=== PATIENT | female | born 1930 | race Caucasian/White ===

== ENCOUNTER 2018-05-12 18:35 | Inpatient (IN) | payer MEDICARE ==
[~2018-05-12 18:35] MED LIST: ISOVUE-370 76%-LOCM 1 ML ONE
[2018-05-12 19:32] LABS: #Lymphocytes 0.6 thou/uL (1.20-3.40); #Monocytes 0.6 thou/uL (0.11-0.59); #Neutrophils 13.3 thou/uL (1.40-6.50); %Eosinophils 0.1 % (0.0-10.0); %Lymphocytes 4.2 % (21.0-51.0); %Monocytes 4.3 % (0.0-10.0); %Neutrophils 91.4 % (42.0-75.0); Hemoglobin 14.3 g/dL (12.0-16.0); Mean Corpuscular HGB CONC 34.4 g/dL (32.0-36.0); Mean Corpuscular Hemoglobin 32.8 pg (27.0-31.0); Mean Corpuscular Volume 95.2 fL (78.0-98.0); Mean Platelet Volume 7.3 fL (7.4-10.4); Platelet Count 218 thou/uL (130-400); Red Blood Cell (RBC) Count 4.37 mill/uL (4.20-5.40); White Blood Cell (WBC) Count 14.5 thou/uL (4.8-10.8)
[2018-05-12 19:54] LABS: ALT (SGPT) 12 U/L (8-55); AST (SGOT) 23 U/L (5-34); Alkaline Phosphatase 80 U/L (40-150); Anion Gap 14 mmol/L (10-20); BUN (Urea Nitrogen) 24 mg/dL (9.8-20.1); Bilirubin, Total 0.6 mg/dL (0.2-1.2); Calc. Creatinine Clearance 0 mL/min (70-130); Calcium 9.4 mg/dL (7.8-10.44); Carbon Dioxide 22 mmol/L (23-31); Chloride 101 mmol/L (98-107); Estimated GFR-MDRD 51; Globulin 3.7 g/dL (2.4-3.5); Glucose 146 mg/dL (83-110); Potassium 3.7 mmol/L (3.5-5.1); Protein, Total 7.7 g/dL (6.0-8.3); Sodium 133 mmol/L (136-145)
[2018-05-12 20:15] LABS: INR-International Normal Ratio 1.6; PTT 26.4 SEC (22.9-36.1); Prothrombin Time 18.9 SEC (12.0-14.7)
[2018-05-12 20:22] LABS: Troponin I Less than 0.010 ng/mL (< 0.028)
--- NOTE | 2018-05-12 20:36 | CT ---
HEAD CT WITHOUT CONTRAST: 05/12/18 COMPARISON: 11/30/16 HISTORY: Fall. Possible CVA. FINDINGS: No parenchymal hemorrhage. No extra-axial hematoma. No midline shift. Basilar cisterns are patent. Ag e appropriate atrophy. There is stable malacic change involving the left frontal lobe. Remainder of t he cerebrum demonstrates preservation of the cortical choi-white matter differentiation. There are ch ronic small vessel ischemic change of the white matter. No evidence of hydrocephalus. Calvarium is in tact. Adequate aeration of the sinuses and mastoid air cells. Cavernous carotid atherosclerosis is no adriana. Calcification/mineralization of the basal ganglia is again noted. IMPRESSION: No acute intracranial process. No intracranial posttraumatic sequela. POS: PPP
--- NOTE | 2018-05-12 20:40 | CT ---
CT CERVICAL SPINE WITHOUT CONTRAST: 05/12/18 HISTORY: Fall. Posttraumatic pain. COMPARISON: None. FINDINGS: There is no craniocervical dissociation. Lateral masses of C1 and C2 articulate appropriately. Approp riate articulation of the facets. Intact odontoid process. Exaggeration of normal cervical lordosis may be due to patient position. There is no prevertebral sof t tissue swelling. Soft tissue neck structures are unremarkable. Carotid atherosclerosis is noted. There appears to be s carring in both lung apices. There are varying degrees of central canal stenosis and neural foraminal narrowing on the basis of degenerative change. Cervical spine vertebral body height is maintained. There is no fracture. IMPRESSION: 1. No fracture. 2. Probable bilateral apical pleural thickening/scarring. 3. Exaggeration of cervical lordosis which is presumed to be due to patient position. If there i s concern for ligamentous injury, consider MRI. POS: PPP
--- NOTE | 2018-05-12 20:51 | RAD ---
THREE VIEW RIGHT SHOULDER: 05/12/18 INDICATION: Fall with injury and pain. FINDINGS: There is a mildly displaced and slightly impacted right humeral neck fracture. Fracture is slightly c omminuted and there is slight displacement of greater tuberosity fracture fragment. Mild osteoarthrit is at the right AC joint is seen. IMPRESSION: Comminuted, mildly displaced and impacted proximal right humeral fracture situated about the right hu meral neck with mild displacement of greater tuberosity fracture fragment. Recommend orthopedic consu ltation. POS: SHERRY
--- NOTE | 2018-05-12 20:53 | RAD ---
TWO VIEW RIGHT ELBOW: 05/12/18 INDICATION: Fall with pain, injury. FINDINGS: The frontal view is rotated limiting visualization. There is no obvious fracture or joint capsular di stention identified. IMPRESSION: No acute fracture of the right elbow identified, within limitations. POS: BRITTANY
--- NOTE | 2018-05-12 20:55 | RAD ---
FRONTAL VIEW CHEST: 05/12/18 COMPARISON: 02/18/18. INDICATION: Fall with pain. FINDINGS: There is prominence of the cardiac silhouette. Right hemidiaphragm is elevated. Left sided cardiac pa cing device remains. There is interstitial prominence of each lung with vascular congestion and vascu lar calcification. Incidental note of a right proximal humeral fracture. There is prominent biapical pleural thickening/ irregularity. Vertebroplasty is seen at the lower thoracic spine. IMPRESSION: Findings consistent with CHF. Proximal right humeral fracture. POS: BRITTANY
[2018-05-12] MEDS ORDERED: Ondansetron HCl/PF 4 MG/2 ML Vial ONE (21:27)
[2018-05-12 21:36] LABS: Bilirubin Negative (Negative); Blood, Urine Small (Negative); Clarity CLOUDY (Clear); Glucose, Urine (Dipstick) Negative (Negative); Leukocyte Moderate (Negative); Nitrite Positive (Negative); Protein, Urine (Dipstick) 30 mg/dL (Neg-Trace); Specific Gravity, Urine 1.017 (1.002-1.036); Urobilinogen 0.2 mg/dL (0.2-1.0)
[2018-05-12 21:38] LABS: Bacteria/HPF 4+ HPF (None Seen); Hyaline Casts/LPF 0-3 HYALINE CAST LPF (0-3 Hyaline); Pathc Cast-AUWi Flag 0.14 (0-2.49); Squamous Epithelial 0-3 HPF (0-3)
--- NOTE | 2018-05-12 22:09 | CT ---
CTA NECK WITH CONTRAST WITH 3D VOLUME RENDERING CTA [place] WITH CONTRAST WITH 3D VOLUME RENDERING 05/12/18 INDICATION: New onset slurred speech. Altered mental status. FINDINGS: There is calcification at imaged aortic arch. The visualized bilateral subclavian arteries reveal no high grade stenosis or occlusion. Each vertebral artery arises from the respective subclavian artery with a dominant left vertebral artery. There is no high grade stenosis or occlusion of either vertebr al artery. There is mild calcification at the origin of the right vertebral artery. Bilateral common carotid artery reveal no significant stenosis or occlusion. There is mild calcification at each carot id bulb without high grade stenosis of either cervical ICA. Basilar artery is patent. Evaluation of t he anterior, middle and posterior cerebral arteries reveals appropriate patency bilaterally. Region o f anterior communicating artery is unremarkable. Very small caliber posterior communicating arteries are faintly visualized. Incidental note of linear parenchymal densities at the upper lung zones as well as bronchiectasis and areas of reticulonodular opacification. There is prominent debris filled, distended esophagus visual ized. Correlate clinically. IMPRESSION: 1. Scattered vascular disease although no high grade stenosis or occlusion of the major arterial system of head and neck. 2. Prominent volume of retained debris of the imaged esophagus. Correlate for dysmotility. 3. Bronchiectasis, presumed areas of scarring and tree-in-bud nodularity at the imaged upper reinaldo g zones. Correlate for evidence of an atypical infarction. POS: BRITTANY
[2018-05-12] MEDS ORDERED: Ondansetron HCl/PF 4 MG/2 ML Vial IVP PRN (23:03)
[2018-05-13] MEDS ORDERED: Morphine 4 MG/ML VIAL IV PRN (02:12)
[2018-05-13] MEDS: Sodium Chloride 0.9% 1,000 ML IV SCH ×2 (02:32→16:04)
[2018-05-13 05:52] LABS: #Lymphocytes 1.2 thou/uL (1.20-3.40); #Monocytes 1.2 thou/uL (0.11-0.59); #Neutrophils 8.7 thou/uL (1.40-6.50); %Basophils 0.4 % (0.0-1.0); %Eosinophils 0.1 % (0.0-10.0); %Lymphocytes 10.9 % (21.0-51.0); %Monocytes 10.4 % (0.0-10.0); %Neutrophils 78.2 % (42.0-75.0); Hemoglobin 12.9 g/dL (12.0-16.0); Mean Corpuscular HGB CONC 33.9 g/dL (32.0-36.0); Mean Corpuscular Hemoglobin 32.4 pg (27.0-31.0); Mean Corpuscular Volume 95.6 fL (78.0-98.0); Mean Platelet Volume 7.5 fL (7.4-10.4); Platelet Count 194 thou/uL (130-400); RBC Distribution Width 12.2 % (11.5-14.5); Red Blood Cell (RBC) Count 3.97 mill/uL (4.20-5.40); White Blood Cell (WBC) Count 11.2 thou/uL (4.8-10.8)
[2018-05-13 06:04] LABS: ALT (SGPT) 11 U/L (8-55); AST (SGOT) 22 U/L (5-34); Albumin 3.6 g/dL (3.4-4.8); Alkaline Phosphatase 67 U/L (40-150); Anion Gap 13 mmol/L (10-20); BUN (Urea Nitrogen) 24 mg/dL (9.8-20.1); Calc. Creatinine Clearance 43 mL/min (70-130); Calcium 9.1 mg/dL (7.8-10.44); Carbon Dioxide 22 mmol/L (23-31); Chloride 103 mmol/L (98-107); Estimated GFR-MDRD 65; Globulin 3.4 g/dL (2.4-3.5); Glucose 110 mg/dL (83-110); Potassium 4.1 mmol/L (3.5-5.1); Sodium 134 mmol/L (136-145)
[2018-05-13] MEDS ORDERED: Famotidine/PF 20 mg/2ml Vial SLOW IVP SCH (09:00)
[2018-05-13] MEDS ORDERED: Prevnar 13-Val Conj/PF 0.5 ML SYRINGE IM ONE (09:00)
[2018-05-13] MEDS: Famotidine/PF 20 mg/2ml Vial SLOW IVP SCH (09:54)
--- NOTE | 2018-05-13 12:45 | CON-2 ---
DATE OF CONSULTATION: 05/13/2018 REASON FOR CONSULTATION: We were asked by [facility], Dr. Chi to see the patient. HISTORY OF PRESENT ILLNESS: The patient fell, was found down by friends yesterday, unwitnessed fall. The patient does not remember falling, does not remember if she had loss of consciousness and she i s a little bit confused. She is answering some simple questions well, but she is being worked up for stroke protocol. She sustained a proximal humerus fracture, so her upper arm hurts on the right, bu t she has good sensations in the hand. She is able to move her elbow and digits on that side well. The patient is unable to give us much history. We will review history from recent notes if they are available. ALLERGIES: No known drug allergies. MEDICATIONS: Unknown. Family was getting the list. PAST MEDICAL HISTORY: Positive for cardiac issues, coronary artery disease, hypertension, breast CA. PAST SURGICAL HISTORY: Pacemaker, gastric bypass and mastectomy. PSYCHIATRIC HISTORY: Per family, she is fairly happy and has no mental issues. SOCIAL HISTORY: No alcohol or nicotine products. Resides at home with family. REVIEW OF SYSTEMS: The patient is confused, but is able to complain of right upper extremity pain. Denies any headache, shortness of breath, chest pain. No bowel or bladder issues, but again she is c onfused. PHYSICAL EXAMINATION: GENERAL: Very pleasant, well-nourished appearing female, resting in bed, in no acute distress. Spee ch clear. Affect pleasant. Answers simple questions appropriately. Is oriented to person. Family is at the bedside. HEENT: Normal exam. Face symmetric. Tongue midline. Smile symmetric. NECK: Supple. Trachea midline. RESPIRATORY: No distress. EXTREMITIES: Upper extremities, equal size, shape, symmetry, normal bulk and tone with the exception of the right deltoid region is a little bit swollen and is starting to have some early ecchymosis. She has good sensations to that right upper extremity as she does with left upper extremity and pulse s are equal. She is able to move elbows and digits on that right upper extremity well. Lower extrem ities, equal size, shape, symmetry, normal bulk and tone. DP and PT pulses symmetric. ASSESSMENT: 1. Multiple medical issues, being worked up for stroke versus transient ischemic attack. 2. Proximal humerus fracture, nonsurgical in nature. PLAN: I had a long talk with the family. Spoke about options. The patient's humerus fracture is th e least of the concerns for the patient currently. Once she is cleared medically, we will started wo rking on physical therapy and then get her up and move her. Her arm is already in a sling and with t he appropriate treatment. I have encouraged the patient to move her elbow and digits, so they will n ot get stiff and the family understands this also. From an ortho standpoint, she can eat, does not n eed to be kept n.p.o. for any orthopedic procedure. We will check her out through the weekend and christianne ke sure she is doing okay. She will need to see us in 4-6 weeks in our clinic for repeat x-rays and followup.
[2018-05-13] MEDS ORDERED: Aspirin 325 mg Enteric Coated Tablet PO SCH (13:00)
[2018-05-13 16:07] LABS: Hemoglobin 12.5 g/dL (12.0-16.0); Platelet Count 197 thou/uL (130-400)
[2018-05-13 16:13] LABS: INR-International Normal Ratio 1.5; Prothrombin Time 18.3 SEC (12.0-14.7)
[2018-05-13] MEDS: Warfarin Sodium 2.5 MG TAB PO SCH (16:22)
--- NOTE | 2018-05-13 17:03 | HP ---
DATE OF ADMISSION: 05/13/2018 PRIMARY CARE PROVIDER: Yadiel Borja M.D. in [place], [place]. CHIEF COMPLAINT: Unresponsiveness. HISTORY OF PRESENT ILLNESS: Ms. Nichols is a pleasant 88-year-old lady who was seen at [facility] on 05/13/2018. The patient herself is unable to provide any history because she does not remember what happened. Collateral history was obtained from review of medical records and discussion with the emergency room physician. Her caregiver left her house around 12:30 p.m. yesterday. Around 5:00 p.m., she was found on the ground, complaining of pain in her right shoulder. She also reportedly had slurred speech at that time. She did not have any headache or weakness. She was brought to the emergency room because of the episode of loss of consciousness. REVIEW OF SYSTEMS: All other systems reviewed and found to be negative. PAST MEDICAL HISTORY: Coronary artery disease, hypertension, probable atrial fibrillation and breast cancer. PAST SURGICAL HISTORY: Breast cancer surgery, pacemaker placement, gastric bypass. SOCIAL HISTORY: The patient denies tobacco use, alcohol use or recreational drug use. CODE STATUS: I discussed her code status. She is full code. ALLERGIES: No known drug allergies. CURRENT MEDICATIONS: Bimatoprost eyedrops, Combigan eyedrops, Coreg 6.25 mg 2 times a day, lisinopril 10 mg daily, mirtazapine 30 mg at bedtime, omeprazole 20 mg 2 times a day and warfarin 3 mg daily. FAMILY HISTORY: No family history of premature coronary artery disease. PHYSICAL EXAMINATION: GENERAL: Ms. Nichols is awake and alert, not in acute distress. VITAL SIGNS: Blood pressure is 159/78, pulse 66, respiratory rate 18 and oxygen saturation 92% on room air. She is afebrile. EYES: No scleral icterus. No conjunctival pallor. ENT: Dry mucosal membranes. No oropharyngeal erythema or exudates. NECK: Supple, nontender, normal range of movement. Trachea is midline. RESPIRATORY: Accessory muscles of breathing are not active. Chest wall movements are symmetric bilaterally. LUNGS: Clear to auscultation without wheeze, rhonchi or crepitations. CARDIOVASCULAR: S1 and S2 are heard, regular. Peripheral pulses palpable. No carotid bruit, no pericardial rub. ABDOMEN: Soft, nontender, bowel sounds are heard, no hepatomegaly, no splenomegaly. NEUROLOGIC: Cranial nerves II-XII intact. Deep tendon reflexes are 2+. No focal motor or sensory deficits. Power is 5/5 in left upper and both lower extremities, right upper extremity is in a sling. Plantar reflexes are downgoing bilaterally. SKIN: No rashes or subcutaneous nodules. MUSCULOSKELETAL: Four extremities as described above. LYMPHATIC: No cervical lymphadenopathy. PSYCHIATRIC: Normal mood, normal affect, the patient is oriented to person, place and time. LABORATORY DATA: Ms. Nichols's labs and investigations were reviewed. I reviewed her electrocardiogram, which shows electronic ventricular pacemaker. I reviewed her chest x-ray, which does not show any pulmonary infiltrates. She does have findings consistent with congestive heart failure. She also has a proximal right humeral fracture. She had noncontrast CT scan of the brain, which did not show any acute intracranial process. She also had CT angiography of the neck and [place], which showed scattered vascular disease, although no high-grade stenosis or occlusion of the major arterial system of head and neck. She had prominent volume of retained debris of the mid esophagus. She also had suspected bronchiectasis. CT of the cervical spine did not show any fracture. X-rays of the right elbow did not show any acute fracture. X-rays of the right shoulder showed comminuted, mildly displaced and impacted proximal right humeral fracture situated about the right humeral neck with mild displacement of greater tuberosity fracture fragment. She has hyponatremia with sodium 134, decreased carbon dioxide of 22, elevated blood urea nitrogen of 24, normal creatinine of 0.83, unremarkable liver profile, leukocytosis with 11,200 white cells, of which 78.2% are neutrophils, normal hemoglobin and normal platelet count. Urinalysis is positive for blood, nitrite and leukocyte esterase. ASSESSMENT AND PLAN: Ms. Nichols is a pleasant 88-year-old lady who was seen at [facility] on 05/13/2018. Her problem list includes: 1. Syncope: Ms. Nichols is presenting after a suspected syncopal episode. She will be admitted to the hospital for further management, including telemetry monitoring for any arrhythmias. Given the history of slurred speech, she will also be ruled out for acute cerebrovascular accident. We cannot obtain an MRI at this time because she has a pacemaker. We will check 2D echocardiogram. Neurology and Cardiology services are being consulted. 2. Urinary tract infection: Start antibiotics, await cultures. 3. Hyponatremia: Mild. We will recheck. 4. Right humeral fracture: Orthopedic Surgery Service is being consulted for opinion and help with management. 5. Chronic anticoagulation: Probably for atrial fibrillation. Her INR is subtherapeutic at 1.5 today. We will request pharmacy to manage warfarin dosing. 6. Dehydration: Clinically, the patient is dehydrated. We will provide her intravenous fluids and reassess. 7. Hypertension: Resume home medications, monitor vital signs and titrate antihypertensives as needed. Many thanks for allowing me to participate in your patient's care. Please feel free to contact me with any questions or concerns. LEVEL OF RISK: High. LEVEL OF COMPLEXITY: High. MTDD
[2018-05-13] MEDS: cefTRIAXone\\ROCEPHIN 1 GM in Sodium Chloride 0.9% 100 ML IVPB SCH (17:40)
[2018-05-13] MEDS: Mirtazapine 30 MG TAB PO SCH (21:20)
[2018-05-13] MEDS: Atorvastatin Calcium 40 MG TAB PO SCH (21:20)
[2018-05-13] MEDS: Carvedilol 6.25 MG TAB PO SCH (21:21)
[2018-05-13] MEDS: Latanoprost 0.005% Ophth Soln 2.5 ml Bottle EA EYE SCH (21:22)
[2018-05-13] MEDS: Brimonidine Tartrate 0.2% Ophth Soln 5 ml Bottle EA EYE SCH (21:22)
[2018-05-13] MEDS: Timolol 0.5% Ophth Soln 5 ml Bottle EA EYE SCH (21:23)
[2018-05-14 05:11] VITALS: BMI 20.2
[2018-05-14 05:48] LABS: INR-International Normal Ratio 1.5; Prothrombin Time 17.7 SEC (12.0-14.7)
[2018-05-14 05:57] LABS: Anion Gap 13 mmol/L (10-20); BUN (Urea Nitrogen) 28 mg/dL (9.8-20.1); Calc. Creatinine Clearance 43 mL/min (70-130); Calcium 9.2 mg/dL (7.8-10.44); Carbon Dioxide 23 mmol/L (23-31); Cardiac Risk 3.5 (Less than 4.5); Chloride 101 mmol/L (98-107); Cholesterol 213 mg/dl (< 200 Desired); Estimated GFR-MDRD 64; Glucose 99 mg/dL (83-110); HDL Cholesterol 61 mg/dL (>60 Neg Risk); LDL Cholesterol, Calculated 133 mg/dL; Sodium 133 mmol/L (136-145); Triglycerides 95 mg/dL (Less than 150)
[2018-05-14 06:08] LABS: #Lymphocytes 0.9 thou/uL (1.20-3.40); #Monocytes 0.8 thou/uL (0.11-0.59); #Neutrophils 8.8 thou/uL (1.40-6.50); %Basophils 0.3 % (0.0-1.0); %Eosinophils 0.3 % (0.0-10.0); %Lymphocytes 8.6 % (21.0-51.0); %Monocytes 7.1 % (0.0-10.0); %Neutrophils 83.6 % (42.0-75.0); Hemoglobin 12.2 g/dL (12.0-16.0); Mean Corpuscular HGB CONC 34.6 g/dL (32.0-36.0); Mean Corpuscular Hemoglobin 33.4 pg (27.0-31.0); Mean Corpuscular Volume 96.5 fL (78.0-98.0); Mean Platelet Volume 7.5 fL (7.4-10.4); Platelet Count 180 thou/uL (130-400); RBC Distribution Width 12.1 % (11.5-14.5); Red Blood Cell (RBC) Count 3.65 mill/uL (4.20-5.40); White Blood Cell (WBC) Count 10.5 thou/uL (4.8-10.8)
[2018-05-14] MEDS ORDERED: Enoxaparin Sodium 40 MG/0.4 ML SYRINGE SC SCH (09:00)
[2018-05-14] MEDS: Sodium Chloride 0.9% 1,000 ML IV SCH ×2 (09:45→22:12)
[2018-05-14] MEDS: Carvedilol 6.25 MG TAB PO SCH ×2 (09:46→20:04)
[2018-05-14] MEDS: Aspirin 325 mg Enteric Coated Tablet PO SCH (09:47)
[2018-05-14] MEDS: Lisinopril 10 MG TAB PO SCH (09:47)
[2018-05-14] MEDS: Timolol 0.5% Ophth Soln 5 ml Bottle EA EYE SCH ×2 (09:48→20:05)
[2018-05-14] MEDS: Brimonidine Tartrate 0.2% Ophth Soln 5 ml Bottle EA EYE SCH ×2 (09:49→20:06)
[2018-05-14] MEDS: Famotidine/PF 20 mg/2ml Vial SLOW IVP SCH (09:49)
--- NOTE | 2018-05-14 14:12 | PDOC.PN ---
- Subjective Encounter Start Date: 05/14/18 Encounter Start Time: 07:20 -: old records requested/rev Pt seen for followup re; E. coli UTI. Denies chest pain, shortness of breath, fevers or chills. - Objective Resuscitation Status: Resuscitation Status DNR:Do Not Resuscitate MAR Reviewed: Yes Vital Signs & Weight: Vital Signs (12 hours) Temp Pulse Pulse Pulse Resp BP BP 05/14/18 12:42 05/14/18 12:00 98.3 F 62 20 05/14/18 09:55 63 62 140/72 05/14/18 09:48 64 164/66 H 05/14/18 09:47 164/66 H 05/14/18 09:46 164/66 H 05/14/18 08:42 05/14/18 08:00 98.8 F 67 20 05/14/18 04:00 97.5 F L 72 20 05/14/18 03:51 BP BP Pulse Ox Pulse Ox Pulse Ox 05/14/18 12:42 107/63 05/14/18 12:00 84/54 L 95 05/14/18 09:55 155/86 H 95 95 05/14/18 09:48 05/14/18 09:47 05/14/18 09:46 05/14/18 08:42 96 05/14/18 08:00 164/66 H 96 05/14/18 04:00 149/77 H 94 L 05/14/18 03:51 94 L Weight Weight 125 lb 3 oz I&O: 05/13/18 05/14/18 05/15/18 06:59 06:59 06:59 Intake Total 140 1320 Balance 140 1320 Result Diagrams: 05/15/18 04:40 05/15/18 04:40 EKG Reviewed by me: Yes (Tele: A-paced) Phys Exam - Physical Examination HEENT: moist MMs, sclera anicteric, oral pharynx no lesions, 2+ tonsils Respiratory: no wheezing, no rales, no rhonchi, clear to auscultation bilateral Cardiovascular: RRR, no rub S1, S2 Gastrointestinal: soft, non-tender, no distention, positive bowel sounds Neurological: moves all 4 limbs Psychiatric: normal affect, A&O x 3 Dx/Plan (1) E. coli UTI Code(s): N39.0 - URINARY TRACT INFECTION, SITE NOT SPECIFIED; B96.20 - UNSP ESCHERICHIA COLI THE CAUSE OF DISEASES CLASSD ELSWHR Status: Acute Comment: continue IV ceftriaxone (2) TIA (transient ischemic attack) Code(s): G45.9 - TRANSIENT CEREBRAL ISCHEMIC ATTACK, UNSPECIFIED Status: Acute Comment: continue aspirin, statin (3) Right humeral fracture Code(s): S42.301A - UNSP FRACTURE OF SHAFT OF HUMERUS, RIGHT ARM, INIT Status : Acute Comment: appreciate orthopedic service input (4) Hyponatremia Code(s): E87.1 - HYPO-OSMOLALITY AND HYPONATREMIA Status: Acute Comment: stable, sodium 133 today (5) Chronic anticoagulation Code(s): Z79.01 - CUSTODIAL (CURRENT) USE OF ANTICOAGULANTS Status: Chronic Comment: INR 1.5 today, continue warfarin (6) HTN (hypertension) Code(s): I10 - ESSENTIAL (PRIMARY) HYPERTENSION Status: Chronic Comment: controlled (7) Dehydration Code(s): E86.0 - DEHYDRATION Status: Resolved - Plan * . Review of Systems - Review of Systems Constitutional: weakness. negative: fever, chills, sweats, malaise Respiratory: negative: Cough, Shortness of Breath, SOB with Excertion, Pleuritic Pain, Wheezing Cardiovascular: negative: chest pain, palpitations, orthopnea, paroxysmal nocturnal dyspnea, edema, light headedness Gastrointestinal: negative: Nausea, Vomiting, Abdominal Pain, Diarrhea, Constipation, Melena, Hematochezia Genitourinary: negative: Dysuria, Frequency, Incontinence, Hematuria, Retention Musculoskeletal: Arm Pain Skin: negative: Rash, Lesions, Garrett, Bruising - Medications/Allergies Allergies/Adverse Reactions: Allergies Allergy/AdvReac Type Severity Reaction Status Date / Time No Known Allergies Allergy Unverified 05/12/18 23:08 Medications: Current Medications Acetaminophen (Tylenol) 650 mg PO Q4H PRN PRN Reason: Headache/Fever/Mild Pain (1-3) Aspirin (Ecotrin) 325 mg PO DAILY [facility] Last Admin: 05/14/18 09:47 Dose: 325 mg Atorvastatin Calcium (Lipitor) 40 mg PO HS [facility] Last Admin: 05/13/18 21:20 Dose: 40 mg Brimonidine Tartrate (Alphagan 0.2% Oph Soln) 1 drop EA EYE BID [facility] Last Admin: 05/14/18 09:49 Dose: 1 drp Carvedilol (Coreg) 6.25 mg PO BID [facility] Last Admin: 05/14/18 09:46 Dose: 6.25 mg Famotidine (Pepcid) 20 mg SLOW IVP DAILY [facility] Last Admin: 05/14/18 09:49 Dose: 20 mg Sodium Chloride (Normal Saline 0.9%) 1,000 mls @ 70 mls/hr IV .[id number] [facility] Last Admin: 05/14/18 09:45 Dose: 1,000 mls Ceftriaxone Sodium 1 gm/ (Sodium Chloride) 100 mls @ 200 mls/hr IVPB Q24HR [facility] Last Admin: 05/13/18 17:40 Dose: 100 mls Latanoprost (Xalatan 0.005% Ophth Soln) 1 drop EA EYE [facility] Last Admin: 05/13/18 21:22 Dose: 1 drop Lisinopril (Zestril) 10 mg PO DAILY [facility] Last Admin: 05/14/18 09:47 Dose: 10 mg Mirtazapine (Remeron) 30 mg PO [facility] Last Admin: 05/13/18 21:20 Dose: 30 mg Miscellaneous Medication (Pharmacy To Dose) 0 each PO .DAILY PRN PRN Reason: WARFARIN Morphine Sulfate (Morphine) 2 mg IV Q4H PRN PRN Reason: Pain Ondansetron HCl (Zofran) 4 mg IVP Q6H PRN PRN Reason: Nausea/Vomiting Pantoprazole Sodium (Protonix) 40 mg PO BID [facility] Last Admin: 05/14/18 09:47 Dose: 40 mg Sodium Chloride (Flush - Normal Saline) 10 ml IVF Q12HR PRN PRN Reason: Saline Flush Sodium Chloride (Flush - Normal Saline) 10 ml IVF PRN PRN PRN Reason: Saline Flush Sodium Chloride (Flush - Normal Saline) 10 ml IVF PRN PRN PRN Reason: Saline Flush Timolol Maleate (Timoptic 0.5% Ophth Soln) 1 drop EA EYE BID [facility] Last Admin: 05/14/18 09:48 Dose: 1 drp Warfarin Sodium (Coumadin) 2.5 mg PO 1700 [facility] Last Admin: 05/13/18 16:22 Dose: 2.5 mg
[2018-05-14] MEDS: cefTRIAXone\\ROCEPHIN 1 GM in Sodium Chloride 0.9% 100 ML IVPB SCH (17:39)
[2018-05-14] MEDS: Warfarin Sodium 2.5 MG TAB PO SCH (17:40)
--- NOTE | 2018-05-14 18:09 | EKG ---
Test Reason : Blood Pressure : / mmHG Vent. Rate : 065 BPM Atrial Rate : 340 BPM P-R Int : 000 ms QRS Dur : 154 ms QT Int : 486 ms P-R-T Axes : 000 -70 085 degrees QTc Int : 505 ms Electronic ventricular pacemaker Confirmed by JUSTINA JENSEN D.O. ([id number]), state editor KAREN MAJANO ([id number] on 05/14/2018 6:09:14 PM Referred By: Confirmed By:JUSTINA JENSEN D.O.
[2018-05-14] MEDS: Atorvastatin Calcium 40 MG TAB PO SCH (20:04)
[2018-05-14] MEDS: Mirtazapine 30 MG TAB PO SCH (20:05)
[2018-05-14] MEDS: Latanoprost 0.005% Ophth Soln 2.5 ml Bottle EA EYE SCH (20:05)
--- NOTE | 2018-05-14 21:24 | CON ---
DATE OF CONSULTATION: 05/14/2018 CHIEF COMPLAINT: Loss of consciousness. HISTORY OF PRESENT ILLNESS: The patient's medical history was mainly given by her caregiver and some degree by patient. Patient is usually walking with a walker and is relatively independent at home, but does have a caregiver who comes and stays with her part of the day. The patient's son-in-law was also in the room. The patient has been noted to have had a fall by a friend of hers who went to pick her up to go somewhere. She found the patient on the floor and patient bruised her right arm and hit her arm and during the fall, no frothing or tongue biting or incontinence was found. The patient appeared confused and therefore they brought her to the hospital. They do not know the exact onset of the event or duration of her loss of consciousness or how long she has been there on the floor. The patient's caregiver recalls a similar incident about 3 months ago, where the patient had low volume of voice. It was difficult to hear and understand her and she felt generally weak and was brought to the hospital and found to have a urinary infection. Even at this visit, the patient has been found to have a urinary infection per family. The patient has been seen by technical applications specialist and no plans are made for surgery at this time when she will be followed up by them in for 4 weeks or so. The patient herself does not remember the fall. The patient's caregiver left around 12:30 in the afternoon and friends found her down at about 5:00 p.m. No history of headache, dizziness or weakness. PAST MEDICAL HISTORY: The patient has history of coronary artery disease, hypertension, and pacemaker placement and breast cancer. PAST SURGICAL HISTORY: Surgery for breast cancer and history of gastric bypass surgery and pacemaker implantation. SOCIAL HISTORY: The patient does not drink or smoke and lives at home and has part-time caregivers. ALLERGIES: No known drug allergies. CURRENT MEDICATIONS: She did not report any specific medications, but I reviewed the medications in her medical chart and patient does take bimatoprost eyedrops, Combigan eyedrops, Coreg, lisinopril, mirtazapine, omeprazole, and Coumadin. FAMILY HISTORY: Negative for any strokes. The patient's mother had cardiac issues. The patient's daughter is 63 and is healthy. REVIEW OF SYSTEMS: Pulmonary: Negative for cough or shortness of breath. Genitourinary: Negative for any bladder frequency or bladder pain. Gastrointestinal: Negative for constipation, no nausea or vomiting. Neurological: Positive for confusion and loss of consciousness. Cardiac: Negative for chest pain or palpitations. Hematologic: Negative for bleeding diatheses. Dermatologic: Negative for any rash. LABORATORY RESULTS: White count 10.5, hemoglobin 12.2, hematocrit 35.2, platelets 180. Chemistries: Sodium 133, potassium 4.0, chloride 101, bicarbonate 23, BUN 28, creatinine 0.84. Triglycerides 95, cholesterol 213, LDL 133, HDL 61. Heart disease risk ratio 3.5. Serum albumin 3.6, serum protein 7.0, globulin 3.4, albumin globulin ratio 1.1. Urinalysis is positive for nitrite, moderate leukocyte esterase and her CT scan angiography of the brain shows scattered vascular disease, although no high-grade stenosis or occlusion of the major arterial system of the head and neck, prominent volume of retained debris of imaged esophagus correlate for dysmotility, bronchiectasis and she does have mild calcification of the origin of right vertebral artery. Bilateral common carotid arteries had no stenosis or occlusion. Mild calcification at each carotid bulb, basilar artery is patent, patent anterior, middle and posterior cerebral arteries. Her CT of the head did not show any acute intracranial process, but there are chronic small vessel ischemic changes in the white matter and calcification or mineralization of the basal ganglia is noted and stable encephalomalacia in the left frontal lobe and echocardiogram showed ejection fraction 59%-60%, moderately dilated left atrium , moderately enlarged right atrium. PHYSICAL EXAMINATION: VITAL SIGNS: Blood pressure 107/63, prior blood pressure earlier was also 84/54 , could be medication related. Temperature 98.3, pulse 62, respiratory rate 20 , O2 sats 95. GENERAL APPEARANCE: Thin built, well-nourished lady who is very pleasant. CHEST: Clear vesicular breathing. CARDIOVASCULAR: S1, S2 heard, no murmurs. Carotids are clear. ABDOMEN: Soft, nontender, no organomegaly noted. NEUROLOGIC: Higher intellectual functions. She is oriented to person, could not tell me that this is [facility]. She knew her address. She also had difficulty remembering the year and month and date. She had memory loss and she was unable to tell me her daughter's age but was able to accurately tell me her granddaughter's age. She appears to have some cognitive deficits which are probably a long time and cranial nerves II-XII normal extraocular movements. Pupils are 2 mm, reactive to light bilaterally. Normal sensation of face bilaterally. No facial asymmetry noted. No decreased hearing bilaterally to finger rub. Tongue midline, no atrophy noted. Normal elevation of palate bilaterally. Motor: Bulk normal, tone normal, strength 5/5 in upper and lower extremities in iliopsoas, hamstrings, quadriceps, ankle dorsiflexion, plantar flexion, deltoid, biceps, triceps, wrist extension/flexion, finger extension/flexion. Right upper extremity evaluation was slightly limited due to her pain. She had bruising in the left arm at the site of her injury and fracture and deep tendon reflexes 1+ throughout in ankle jerks, knee jerks brachioradialis, biceps and triceps. Sensory: Decreased vibration distally in lower extremities, but preserved at the ankles and normal sensation to touch, pinprick, proprioception and temperature. Cerebellar: Normal [id number], heel to serrano. IMPRESSION: Patient is an 88-year-old lady with an episode of possible fall and possible loss of consciousness and confusion. She was found down by her neighbors who went to take her somewhere, and EMS was called. They found her to be confused. On CT there was no evidence of any intracerebral hemorrhage or significant vasoocclusive disease of the carotids. Echocardiogram is negative. She has a urinary infection which is likely the cause of her altered mental status. Her examination also shows cognitive deficits during conversation and she had difficulty with orientation. Based on available history and results it is reasonable to conclude that she might have had a syncopal event or had fall due to loss of balance and altered level of consciousness due to her urinary infection. There is no foaming or incontinence noted or tongue biting noted which is less in favor of a seizure. She might even have had orthostatic hypotension since patient was unsupervised for 5 hours or 4-1/2 hours. It is difficult to tell what this event was. Differential diagnosis includes syncope versus seizure versus altered mental status with loss of balance and fall with injury. RECOMMENDATIONS: 1. Please monitor for any neurological changes during this hospital stay, particularly monitor for any seizure-like activity. 2. I educated the patient and family about possible nature of different events relating to altered mental status while this may seemed like acute encephalopathy due to urinary infection. I also advised her son in law to take her to a neurologist as outpatient for thorough evaluation of possible dementia. 3. I do not think any additional medications are needed at this time. 4. We are unable to obtain MRI due to her having a pacemaker. I will check on her on an as needed basis. MAR
[2018-05-15 04:56] LABS: #Lymphocytes 0.9 thou/uL (1.20-3.40); #Monocytes 0.7 thou/uL (0.11-0.59); #Neutrophils 7.3 thou/uL (1.40-6.50); %Basophils 0.3 % (0.0-1.0); %Eosinophils 0.4 % (0.0-10.0); %Lymphocytes 9.6 % (21.0-51.0); %Monocytes 8.2 % (0.0-10.0); %Neutrophils 81.4 % (42.0-75.0); Hemoglobin 10.8 g/dL (12.0-16.0); Mean Corpuscular HGB CONC 34.3 g/dL (32.0-36.0); Mean Corpuscular Hemoglobin 32.5 pg (27.0-31.0); Mean Corpuscular Volume 94.8 fL (78.0-98.0); Mean Platelet Volume 7.1 fL (7.4-10.4); Platelet Count 173 thou/uL (130-400); RBC Distribution Width 11.8 % (11.5-14.5); Red Blood Cell (RBC) Count 3.33 mill/uL (4.20-5.40); White Blood Cell (WBC) Count 8.9 thou/uL (4.8-10.8)
[2018-05-15 05:01] LABS: INR-International Normal Ratio 1.4; Prothrombin Time 17.4 SEC (12.0-14.7)
[2018-05-15 05:09] LABS: Anion Gap 10 mmol/L (10-20); BUN (Urea Nitrogen) 18 mg/dL (9.8-20.1); Calc. Creatinine Clearance 50 mL/min (70-130); Calcium 8.6 mg/dL (7.8-10.44); Carbon Dioxide 24 mmol/L (23-31); Chloride 102 mmol/L (98-107); Estimated GFR-MDRD 77; Glucose 101 mg/dL (83-110); Potassium 3.6 mmol/L (3.5-5.1); Sodium 132 mmol/L (136-145)
[2018-05-15] MEDS ORDERED: hydrALAZINE 20 MG/ML VIAL SLOW IVP PRN (05:36)
[2018-05-15] MEDS: Sodium Chloride 0.9% 1,000 ML IV SCH ×2 (06:06→21:28)
[2018-05-15] MEDS: Acetaminophen 325 MG TAB PO PRN (06:25)
[2018-05-15] MEDS: Carvedilol 6.25 MG TAB PO SCH ×2 (08:30→21:26)
[2018-05-15] MEDS: Brimonidine Tartrate 0.2% Ophth Soln 5 ml Bottle EA EYE SCH ×2 (08:31→21:27)
[2018-05-15] MEDS: Famotidine/PF 20 mg/2ml Vial SLOW IVP SCH (08:31)
[2018-05-15] MEDS: Aspirin 325 mg Enteric Coated Tablet PO SCH (08:31)
[2018-05-15] MEDS: Lisinopril 10 MG TAB PO SCH (08:31)
[2018-05-15] MEDS: Timolol 0.5% Ophth Soln 5 ml Bottle EA EYE SCH ×2 (08:32→21:27)
--- NOTE | 2018-05-15 13:09 | PRG ---
DATE OF SERVICE: 05/15/2018 CHIEF COMPLAINT: Confusion. INTERVAL HISTORY: The patient is experiencing intermittent confusion. She is also having hypotensio n, but that is not correlating with the episodes of confusion. Overall, she remains stable. No seiz ures were noted during this admission. Caregiver is by her bedside. LABORATORY REPORT: White count 8.9, hemoglobin 10.8, hematocrit 31.6, platelets 173. Sodium 132, po tassium 3.6, chloride 102, bicarbonate 24, BUN 18, creatinine 0.72. Triglycerides are 95, cholestero l 213, LDL 133, HDL 61. Heart disease risk ratio is 3.5. PHYSICAL EXAMINATION: VITAL SIGNS: Blood pressure 85/60, pulse 71, temperature is 99.1, and O2 sats 96. GENERAL: Well-built, well-nourished lady, still has some pain and discomfort in the right arm. Orie nted to person, not to time. Cranial Nerves: No facial asymmetry. Normal extraocular movements. Motor exam: She seems to have intact strength in both upper and lower extremities. IMPRESSION: An 88-year-old lady with urinary infection and a fall, which was unwitnessed, and confus ion. She may have underlying dementia, which has not been diagnosed so far and she has encephalopath y, likely due to metabolic causes including urinary infection, and currently, she has hyponatremia an d hypotensive episodes. No seizure-like activity was noted since admission. RECOMMENDATIONS: 1. Please continue to monitor for any seizures. 2. Please consider referring her to Neurology as outpatient once discharged for further evaluation o f dementia. Call Neurology if you have any questions.
[2018-05-15 15:48] LABS: Hemoglobin 11.5 g/dL (12.0-16.0); Platelet Count 190 thou/uL (130-400)
--- NOTE | 2018-05-15 16:03 | PDOC.PN ---
- Subjective Encounter Start Date: 05/15/18 Encounter Start Time: 07:40 Pt seen for followup re: UTI. Feels better. No nausea, vomiting or diarrhea. No fevers or chills. - Objective Resuscitation Status: Resuscitation Status DNR:Do Not Resuscitate MAR Reviewed: Yes Vital Signs & Weight: Vital Signs (12 hours) Temp Pulse Resp BP BP BP BP 05/15/18 15:36 98.3 F 99 16 130/78 05/15/18 15:19 144/75 H 121/74 133/81 05/15/18 15:17 65 133/81 05/15/18 11:55 71 18 85/60 L 05/15/18 08:32 74 159/80 H 05/15/18 08:31 159/80 H 05/15/18 08:30 159/80 H 05/15/18 08:22 05/15/18 07:43 99.1 F 82 16 159/80 H 05/15/18 06:05 77 Pulse Ox 05/15/18 15:36 95 05/15/18 15:19 05/15/18 15:17 05/15/18 11:55 96 05/15/18 08:32 05/15/18 08:31 05/15/18 08:30 05/15/18 08:22 94 L 05/15/18 07:43 94 L 05/15/18 06:05 Weight Weight 125 lb 1 oz I&O: 05/14/18 05/15/18 05/16/18 06:59 06:59 06:59 Intake Total 1320 1523 Balance 1320 1523 Result Diagrams: 05/15/18 15:34 05/15/18 04:40 EKG Reviewed by me: Yes (Tele: NSR) Phys Exam - Physical Examination Constitutional: NAD HEENT: moist MMs Neck: supple Respiratory: clear to auscultation bilateral Cardiovascular: RRR Gastrointestinal: soft R shoulder sling Neurological: non-focal Psychiatric: normal affect Dx/Plan (1) E. coli UTI Code(s): N39.0 - URINARY TRACT INFECTION, SITE NOT SPECIFIED; B96.20 - UNSP ESCHERICHIA COLI THE CAUSE OF DISEASES CLASSD ELSWHR Status: Acute Comment: change antibiotic to Macrobid (E. coli UTI) (2) TIA (transient ischemic attack) Code(s): G45.9 - TRANSIENT CEREBRAL ISCHEMIC ATTACK, UNSPECIFIED Status: Acute Comment: on aspirin, statin (3) Right humeral fracture Code(s): S42.301A - UNSP FRACTURE OF SHAFT OF HUMERUS, RIGHT ARM, INIT Status : Acute Comment: seen by orthopedic surgery (4) Hyponatremia Code(s): E87.1 - HYPO-OSMOLALITY AND HYPONATREMIA Status: Acute Comment: stable, sodium 133 today (5) Chronic anticoagulation Code(s): Z79.01 - USP (CURRENT) USE OF ANTICOAGULANTS Status: Chronic Comment: continue warfarin (6) HTN (hypertension) Code(s): I10 - ESSENTIAL (PRIMARY) HYPERTENSION Status: Chronic Comment: controlled (7) Dehydration Code(s): E86.0 - DEHYDRATION Status: Resolved - Plan * . Review of Systems - Review of Systems Cardiovascular: negative: chest pain, palpitations, orthopnea, paroxysmal nocturnal dyspnea, edema, light headedness Gastrointestinal: negative: Nausea, Vomiting, Abdominal Pain, Diarrhea, Constipation, Melena, Hematochezia - Medications/Allergies Allergies/Adverse Reactions: Allergies Allergy/AdvReac Type Severity Reaction Status Date / Time No Known Allergies Allergy Unverified 05/12/18 23:08 Medications: Current Medications Acetaminophen (Tylenol) 650 mg PO Q4H PRN PRN Reason: Headache/Fever/Mild Pain (1-3) Last Admin: 05/15/18 06:25 Dose: 650 mg Aspirin (Ecotrin) 325 mg PO DAILY [facility] Last Admin: 05/15/18 08:31 Dose: 325 mg Atorvastatin Calcium (Lipitor) 40 mg PO HS [facility] Last Admin: 05/14/18 20:04 Dose: 40 mg Brimonidine Tartrate (Alphagan 0.2% [facility]) 1 drop EA EYE BID [facility] Last Admin: 05/15/18 08:31 Dose: 1 drp Carvedilol (Coreg) 6.25 mg PO BID [facility] Last Admin: 05/15/18 08:30 Dose: 6.25 mg Enoxaparin Sodium (Lovenox) 60 mg SC 0900,2100 [facility] Famotidine (Pepcid) 20 mg SLOW IVP DAILY [facility] Last Admin: 05/15/18 08:31 Dose: 20 mg Hydralazine HCl (Apresoline) 10 mg SLOW IVP Q4H PRN PRN Reason: SBP > 180 Last Admin: 10/07/18 06:05 Dose: 10 mg Sodium Chloride (Normal Saline 0.9%) 1,000 mls @ 70 mls/hr IV .[id number] [facility] Last Admin: 05/15/18 06:06 Dose: 1,000 mls Ceftriaxone Sodium 1 gm/ (Sodium Chloride) 100 mls @ 200 mls/hr IVPB Q24HR [facility] Last Admin: 05/14/18 17:39 Dose: 100 mls Latanoprost (Xalatan 0.005% Ophth Soln) 1 drop EA EYE [facility] Last Admin: 05/14/18 20:05 Dose: 1 drop Mirtazapine (Remeron) 30 mg PO HS [facility] Last Admin: 05/14/18 20:05 Dose: 30 mg Miscellaneous Medication (Pharmacy To Dose) 0 each PO .DAILY PRN PRN Reason: WARFARIN Morphine Sulfate (Morphine) 2 mg IV Q4H PRN PRN Reason: Pain Ondansetron HCl (Zofran) 4 mg IVP Q6H PRN PRN Reason: Nausea/Vomiting Pantoprazole Sodium (Protonix) 40 mg PO BID [facility] Last Admin: 05/15/18 08:31 Dose: 40 mg Sodium Chloride (Flush - Normal Saline) 10 ml IVF Q12HR PRN PRN Reason: Saline Flush Last Admin: 05/15/18 08:32 Dose: 10 ml Sodium Chloride (Flush - Normal Saline) 10 ml IVF PRN PRN PRN Reason: Saline Flush Sodium Chloride (Flush - Normal Saline) 10 ml IVF PRN PRN PRN Reason: Saline Flush Timolol Maleate (Timoptic 0.5% Oph Soln) 1 drop EA EYE BID [facility] Last Admin: 05/15/18 08:32 Dose: 1 drp Warfarin Sodium (Coumadin) 4 mg PO 1700 [facility]
[2018-05-15] MEDS: Warfarin Sodium 2 MG TAB PO SCH (16:37)
[2018-05-15] MEDS: Mirtazapine 30 MG TAB PO SCH (21:26)
[2018-05-15] MEDS: Enoxaparin Sodium 60 MG/0.6 ML SYRINGE SC SCH (21:26)
[2018-05-15] MEDS: Atorvastatin Calcium 40 MG TAB PO SCH (21:26)
[2018-05-15] MEDS: Nitrofurantoin Monohyd/M-Cryst 100 MG CAP PO SCH (21:26)
[2018-05-15] MEDS: Latanoprost 0.005% Ophth Soln 2.5 ml Bottle EA EYE SCH (21:28)
[2018-05-16 05:33] LABS: #Eosinphils 0.1 thou/uL (0.0-0.7); #Lymphocytes 1.1 thou/uL (1.20-3.40); #Monocytes 0.6 thou/uL (0.11-0.59); #Neutrophils 7.4 thou/uL (1.40-6.50); %Basophils 0.4 % (0.0-1.0); %Eosinophils 0.6 % (0.0-10.0); %Lymphocytes 11.5 % (21.0-51.0); %Neutrophils 81.4 % (42.0-75.0); Hemoglobin 11.4 g/dL (12.0-16.0); Mean Corpuscular HGB CONC 33.7 g/dL (32.0-36.0); Mean Corpuscular Hemoglobin 32.6 pg (27.0-31.0); Mean Corpuscular Volume 96.7 fL (78.0-98.0); Mean Platelet Volume 7.2 fL (7.4-10.4); Platelet Count 205 thou/uL (130-400); RBC Distribution Width 12.1 % (11.5-14.5); White Blood Cell (WBC) Count 9.1 thou/uL (4.8-10.8)
[2018-05-16 05:39] LABS: INR-International Normal Ratio 1.6; Prothrombin Time 18.7 SEC (12.0-14.7)
[2018-05-16 05:45] LABS: Anion Gap 14 mmol/L (10-20); BUN (Urea Nitrogen) 17 mg/dL (9.8-20.1); Calc. Creatinine Clearance 46 mL/min (70-130); Carbon Dioxide 20 mmol/L (23-31); Chloride 102 mmol/L (98-107); Estimated GFR-MDRD 69; Glucose 98 mg/dL (83-110); Potassium 3.6 mmol/L (3.5-5.1); Sodium 132 mmol/L (136-145)
[2018-05-16] MEDS: Timolol 0.5% Ophth Soln 5 ml Bottle EA EYE SCH ×2 (08:15→21:19)
[2018-05-16] MEDS: Brimonidine Tartrate 0.2% Ophth Soln 5 ml Bottle EA EYE SCH ×2 (08:16→21:20)
[2018-05-16] MEDS: Enoxaparin Sodium 60 MG/0.6 ML SYRINGE SC SCH ×2 (08:16→21:20)
[2018-05-16] MEDS: Carvedilol 6.25 MG TAB PO SCH ×2 (08:16→21:18)
[2018-05-16] MEDS: Famotidine/PF 20 mg/2ml Vial SLOW IVP SCH (08:17)
[2018-05-16] MEDS: Aspirin 325 mg Enteric Coated Tablet PO SCH (08:17)
[2018-05-16] MEDS: Nitrofurantoin Monohyd/M-Cryst 100 MG CAP PO SCH ×2 (08:17→21:18)
--- NOTE | 2018-05-16 15:58 | CON ---
DATE OF CONSULTATION: 05/16/2018 HISTORY OF PRESENT: The patient is an unfortunate 88-year-old woman who presents after having losing consciousness. The patient has a history of placement of electronic pacemaker. The patient also has a history of chronic atrial fibrillation and is on chronic anticoagulation therapy. The patient was in her usual state of health when she stood up and suddenly lost consciousness. The patient denied having any chest discomfort or palpitations. PAST MEDICAL HISTORY: 1. Atrial fibrillation. 2. Hypertension. 3. History of electronic pacemaker placement. 4. Breast carcinoma. PAST SURGICAL HISTORY: Breast surgery and gastric bypass. SOCIAL HISTORY: Nonsmoker. She lives alone with the caregiver. ALLERGIES: No known drug allergies. MEDICATIONS ON ADMISSION: Coreg 6.25 b.i.d., lisinopril 10 daily, mirtazapine 30 at bedtime, omeprazole 40 daily, Coumadin 3 at bedtime. REVIEW OF SYSTEMS: Ten-point system otherwise unremarkable. No history of bruising or bleeding, bright red blood per rectum, PHYSICAL EXAMINATION: GENERAL: Elderly woman, in no acute distress. VITAL SIGNS: Blood pressure is 85/60. NECK: Showed no jugular venous distention. LUNGS: Clear to auscultation. HEART: Regular rate and rhythm. Normal S1. ABDOMEN: Nondistended. EXTREMITIES: Showed no edema. VASCULAR: Radial pulses are 2+. LABORATORY: Sodium was 132, potassium 3.6, chloride 102, bicarbonate 24, BUN 18 , creatinine 0.72, glucose 101. INR was 1.4. White blood cell count 8.9, hemoglobin 10.8, hematocrit 31.6, platelets are 173. EKG revealed an electronic ventricular pacemaker. IMPRESSION: 1. Syncope, probably orthostatic. 2. History of electronic pacemaker. 3. Permanent atrial fibrillation. 4. Right arm fracture. 5. Hypertension. This unfortunate woman probably had a syncopal episode secondary to orthostatic hypotension. The patient's electronic pacemaker was interrogated. The patient appears to most likely have orthostatic hypotension. We discontinued her lisinopril. We would obtain an EP consultation since the patient needs to be on anticoagulation, but should be considered for Watchman device. At this time , we will place on Lovenox for thromboembolism prevention and increase the dose of her Coumadin. We will follow this patient with you through her hospitalization. MAR
--- NOTE | 2018-05-16 17:42 | PDOC.PN ---
- Subjective Encounter Start Date: 05/16/18 Encounter Start Time: 07:40 Pt seen for followup re: UTI. Denies chest pain, shortness of breath, fevers or chills. - Objective Resuscitation Status: Resuscitation Status DNR:Do Not Resuscitate MAR Reviewed: Yes Vital Signs & Weight: Vital Signs (12 hours) Temp Pulse Pulse Resp BP BP BP 05/16/18 15:28 98.1 F 87 16 186/90 H 05/16/18 11:27 98.5 F 64 16 144/80 H 05/16/18 09:30 60 117/60 05/16/18 08:16 183/106 H 05/16/18 08:15 76 183/106 H 05/16/18 07:38 98.2 F 76 16 183/106 H Pulse Ox Pulse Ox 05/16/18 15:28 94 L 05/16/18 11:27 94 L 05/16/18 09:30 96 05/16/18 08:16 05/16/18 08:15 05/16/18 07:38 92 L Weight Weight 125 lb 12.8 oz I&O: 05/15/18 05/16/18 05/17/18 06:59 06:59 06:59 Intake Total 1523 1200 1320 Balance 1523 1200 1320 Result Diagrams: 05/16/18 05:10 05/16/18 05:10 EKG Reviewed by me: Yes (Tele: NSR) Phys Exam - Physical Examination Constitutional: NAD HEENT: moist MMs Neck: supple Respiratory: clear to auscultation bilateral Cardiovascular: RRR Gastrointestinal: soft R humerus in sling Psychiatric: normal affect Dx/Plan (1) E. coli UTI Code(s): N39.0 - URINARY TRACT INFECTION, SITE NOT SPECIFIED; B96.20 - UNSP ESCHERICHIA COLI THE CAUSE OF DISEASES CLASSD ELSWHR Status: Acute Comment: continue macrobid for E. coli UTI (2) TIA (transient ischemic attack) Code(s): G45.9 - TRANSIENT CEREBRAL ISCHEMIC ATTACK, UNSPECIFIED Status: Acute Comment: continue aspirin and statin (3) Right humeral fracture Code(s): S42.301A - UNSP FRACTURE OF SHAFT OF HUMERUS, RIGHT ARM, INIT Status : Acute Comment: seen by orthopedic surgery, needs to followup with them in 4- 6 weeks (4) Hyponatremia Code(s): E87.1 - HYPO-OSMOLALITY AND HYPONATREMIA Status: Acute Comment: stable, sodium 133 today (5) Chronic anticoagulation Code(s): Z79.01 - USP (CURRENT) USE OF ANTICOAGULANTS Status: Chronic Comment: continue warfarin (6) HTN (hypertension) Code(s): I10 - ESSENTIAL (PRIMARY) HYPERTENSION Status: Chronic Comment: controlled (7) Chronic atrial fibrillation Code(s): I48.2 - CHRONIC ATRIAL FIBRILLATION Status: Chronic Comment: appreciate cardiology service input. Awaiting EP consult. (8) Dehydration Code(s): E86.0 - DEHYDRATION Status: Resolved - Plan * . Review of Systems - Review of Systems Respiratory: negative: Cough, Shortness of Breath, SOB with Excertion, Pleuritic Pain, Wheezing Cardiovascular: negative: chest pain, palpitations, orthopnea, paroxysmal nocturnal dyspnea, edema, light headedness - Medications/Allergies Allergies/Adverse Reactions: Allergies Allergy/AdvReac Type Severity Reaction Status Date / Time No Known Allergies Allergy Unverified 05/12/18 23:08 Medications: Current Medications Acetaminophen (Tylenol) 650 mg PO Q4H PRN PRN Reason: Headache/Fever/Mild Pain (1-3) Last Admin: 05/15/18 06:25 Dose: 650 mg Atorvastatin Calcium (Lipitor) 40 mg PO HS [facility] Last Admin: 05/15/18 21:26 Dose: 40 mg Brimonidine Tartrate (Alphagan 0.2% Oph Soln) 1 drop EA EYE BID [facility] Last Admin: 05/16/18 08:16 Dose: 1 drp Carvedilol (Coreg) 6.25 mg PO BID [facility] Last Admin: 05/16/18 08:16 Dose: 6.25 mg Enoxaparin Sodium (Lovenox) 60 mg SC 0900,2100 [facility] Last Admin: 05/16/18 08:16 Dose: 60 mg Famotidine (Pepcid) 20 mg SLOW IVP DAILY [facility] Last Admin: 05/16/18 08:17 Dose: 20 mg Hydralazine HCl (Apresoline) 10 mg SLOW IVP Q4H PRN PRN Reason: SBP > 180 Last Admin: 05/15/18 06:05 Dose: 10 mg Sodium Chloride (Normal Saline 0.9%) 1,000 mls @ 70 mls/hr IV .[id number] [facility] Last Admin: 05/15/18 21:28 Dose: 1,000 mls Latanoprost (Xalatan 0.005% Ophth Soln) 1 drop EA EYE [facility] Last Admin: 05/15/18 21:28 Dose: 1 drop Mirtazapine (Remeron) 30 mg PO HS [facility] Last Admin: 05/15/18 21:26 Dose: 30 mg Miscellaneous Medication (Pharmacy To Dose) 0 each PO .DAILY PRN PRN Reason: WARFARIN Morphine Sulfate (Morphine) 2 mg IV Q4H PRN PRN Reason: Pain Nitrofurantoin Macrocrystals (Macrobid) 100 mg PO BID [facility] Last Admin: 05/16/18 08:17 Dose: 100 mg Ondansetron HCl (Zofran) 4 mg IVP Q6H PRN PRN Reason: Nausea/Vomiting Pantoprazole Sodium (Protonix) 40 mg PO BID [facility] Last Admin: 05/16/18 08:17 Dose: 40 mg Sodium Chloride (Flush - Normal Saline) 10 ml IVF Q12HR PRN PRN Reason: Saline Flush Last Admin: 05/15/18 08:32 Dose: 10 ml Sodium Chloride (Flush - Normal Saline) 10 ml IVF PRN PRN PRN Reason: Saline Flush Sodium Chloride (Flush - Normal Saline) 10 ml IVF PRN PRN PRN Reason: Saline Flush Timolol Maleate (Timoptic 0.5% Ophth Soln) 1 drop EA EYE BID [facility] Last Admin: 05/16/18 08:15 Dose: 1 drp Warfarin Sodium (Coumadin) 4 mg PO 1700 [facility] Last Admin: 05/15/18 16:37 Dose: 4 mg
[2018-05-16] MEDS: Warfarin Sodium 2 MG TAB PO SCH (18:00)
[2018-05-16] MEDS: Sodium Chloride 0.9% 1,000 ML IV SCH ×2 (18:00→18:50)
--- NOTE | 2018-05-16 21:02 | PRG ---
DATE OF SERVICE: 05/16/2018 SUBJECTIVE: Ms. Nichols is moderately confused and disoriented. She mostly knows she is disoriented. PHYSICAL EXAMINATION: VITAL SIGNS: Her blood pressure is variable at 117/60, pulse in the 80s, it is irregular. LUNGS: Clear. CARDIAC: Irregular, irregular. ABDOMEN: Soft, nontender. EXTREMITIES: No edema. ASSESSMENT: 1. Labile hypertension. 2. Syncopal episode due to orthostatic hypotension. 3. Diastolic congestive heart failure with a BNP 143.7. 4. Subtherapeutic INR. PLAN: 1. She will be a better candidate for direct oral anticoagulants. 2. Tried to get up walking around. 3. Suspect she could need placement.
[2018-05-16] MEDS: Mirtazapine 30 MG TAB PO SCH (21:18)
[2018-05-16] MEDS: Atorvastatin Calcium 40 MG TAB PO SCH (21:18)
[2018-05-16] MEDS: Latanoprost 0.005% Ophth Soln 2.5 ml Bottle EA EYE SCH (21:20)
[2018-05-17 05:05] LABS: INR-International Normal Ratio 1.9; Prothrombin Time 21.8 SEC (12.0-14.7)
[2018-05-17] MEDS: Acetaminophen 325 MG TAB PO PRN (06:46)
[2018-05-17] MEDS: Famotidine/PF 20 mg/2ml Vial SLOW IVP SCH (09:18)
[2018-05-17] MEDS: Apixaban 2.5 MG TAB PO SCH ×2 (09:18→20:41)
[2018-05-17] MEDS: Carvedilol 6.25 MG TAB PO SCH ×2 (09:18→20:43)
[2018-05-17] MEDS: Brimonidine Tartrate 0.2% Ophth Soln 5 ml Bottle EA EYE SCH ×2 (09:19→20:43)
[2018-05-17] MEDS: Nitrofurantoin Monohyd/M-Cryst 100 MG CAP PO SCH ×2 (09:20→20:41)
[2018-05-17] MEDS: Timolol 0.5% Ophth Soln 5 ml Bottle EA EYE SCH ×2 (09:20→20:42)
[2018-05-17] MEDS ORDERED: Lisinopril 2.5 MG TAB PO SCH (10:15)
--- NOTE | 2018-05-17 10:32 | PRG ---
DATE OF SERVICE: 05/17/2018 SUBJECTIVE: Ms. Nichols is sitting up in a chair. She is more awake and alert today. She has a caregi galindo with her and some family. The patient seems more oriented. PHYSICAL EXAMINATION: VITAL SIGNS: Blood pressure 160/80, pulse 65, it is regular. LUNGS: Clear. CARDIAC: Normal S1, normal S2. ABDOMEN: Soft and nontender. ASSESSMENT: 1. Chronic atrial fibrillation. 2. Recent falling with some orthostatic hypotension. 3. Hypertensive. 4. Previous pacemaker. 5. Normal left ventricular systolic function. PLAN: 1. The patient was changed to Eliquis 2.5 mg twice a day. She is over age 80 and less than 60 60 ki lograms, therefore, the lower dose is appropriate. 2. No aspirin. 3. Carvedilol 6.25 mg twice daily. 4. Lisinopril will be resumed at a lower dose 2.5 mg a daily. 5. She can be released to rehab facility at any point. The patient is stable from a cardiac standpo int.
[2018-05-17] MEDS: Sodium Chloride 0.9% 1,000 ML IV SCH (15:06)
[2018-05-17 15:36] LABS: Hemoglobin 10.4 g/dL (12.0-16.0); Platelet Count 191 thou/uL (130-400)
[2018-05-17] MEDS: Mirtazapine 30 MG TAB PO SCH (20:41)
[2018-05-17] MEDS: Atorvastatin Calcium 40 MG TAB PO SCH (20:41)
[2018-05-17] MEDS: Latanoprost 0.005% Ophth Soln 2.5 ml Bottle EA EYE SCH (20:42)
--- NOTE | 2018-05-17 22:41 | PDOC.PN ---
- Subjective Encounter Start Date: 05/17/18 Encounter Start Time: 16:00 Subjective: nsg notes rev, mehdi ovn, no new c/o, understands overall POC, wants to go to -: [facility] - Objective Resuscitation Status: Resuscitation Status DNR:Do Not Resuscitate Vital Signs & Weight: Vital Signs (12 hours) Temp Pulse Pulse Pulse Resp BP BP 05/17/18 20:43 135/74 05/17/18 20:42 67 135/74 05/17/18 20:00 98.0 F 67 22 H 05/17/18 16:00 98.6 F 60 14 05/17/18 15:24 61 65 155/85 H 05/17/18 11:51 62 118/72 05/17/18 11:50 97.8 F 60 16 BP BP BP Pulse Ox 05/17/18 20:43 05/17/18 20:42 05/17/18 20:00 135/74 92 L 05/17/18 16:00 131/84 93 L 05/17/18 15:24 141/85 H 05/17/18 11:51 05/17/18 11:50 118/72 93 L Weight Weight 125 lb 12.8 oz I&O: 05/16/18 05/17/18 05/18/18 06:59 06:59 06:59 Intake Total 1200 2400 3409 Balance 1200 2400 3409 Result Diagrams: 05/17/18 15:24 05/16/18 05:10 Phys Exam - Physical Examination Constitutional: NAD lying on hospital bed HEENT: moist MMs Respiratory: no wheezing, no rales, no rhonchi, clear to auscultation bilateral Cardiovascular: RRR, no significant murmur, no rub Gastrointestinal: soft, non-tender, positive bowel sounds Musculoskeletal: pulses present Neurological: moves all 4 limbs Psychiatric: normal affect, A&O x 3 Dx/Plan - Plan (1) E. coli UTI Code(s): N39.0 - URINARY TRACT INFECTION, SITE NOT SPECIFIED; B96.20 - UNSP ESCHERICHIA COLI THE CAUSE OF DISEASES CLASSD ELSWHR Status: Acute Comment: continue macrobid for E. coli UTI 7d course for complicated UTI to end on 05/18 (2) TIA (transient ischemic attack) Code(s): G45.9 - TRANSIENT CEREBRAL ISCHEMIC ATTACK, UNSPECIFIED Status: Acute Comment: continue aspirin and statin (3) Right humeral fracture Code(s): S42.301A - UNSP FRACTURE OF SHAFT OF HUMERUS, RIGHT ARM, INIT Status : Acute Comment: seen by orthopedic surgery, needs to followup with them in 4- 6 weeks outpatient (4) Hyponatremia Code(s): E87.1 - HYPO-OSMOLALITY AND HYPONATREMIA Status: Acute Comment: stable, sodium 133 today (5) Chronic anticoagulation Code(s): Z79.01 - CUSTODIAL (CURRENT) USE OF ANTICOAGULANTS Status: Chronic Comment: currently on eliquis (no longer on warfarin) (6) HTN (hypertension) Code(s): I10 - ESSENTIAL (PRIMARY) HYPERTENSION Status: Chronic Comment: controlled (7) Chronic atrial fibrillation Code(s): I48.2 - CHRONIC ATRIAL FIBRILLATION Status: Chronic Comment: appreciate cardiology service input. Awaiting EP consult. (8) Dehydration Code(s): E86.0 - DEHYDRATION Status: Resolved diet: cardiac activity: as ryan dvt ppx
[2018-05-18] MEDS: Acetaminophen 325 MG TAB PO PRN (00:07)
[2018-05-18 04:38] LABS: INR-International Normal Ratio 2.7; Prothrombin Time 28.5 SEC (12.0-14.7)
[2018-05-18] MEDS: Timolol 0.5% Ophth Soln 5 ml Bottle EA EYE SCH (08:26)
[2018-05-18] MEDS: Brimonidine Tartrate 0.2% Ophth Soln 5 ml Bottle EA EYE SCH (08:26)
[2018-05-18] MEDS: Nitrofurantoin Monohyd/M-Cryst 100 MG CAP PO SCH ×2 (08:28→11:50)
[2018-05-18] MEDS: Famotidine/PF 20 mg/2ml Vial SLOW IVP SCH (08:28)
[2018-05-18] MEDS: Carvedilol 6.25 MG TAB PO SCH (08:28)
[2018-05-18] MEDS ORDERED: Apixaban 2.5 MG TAB PO SCH (09:00)
[2018-05-18] MEDS ORDERED: Lisinopril 2.5 MG TAB PO SCH (09:00)
[2018-05-18] MEDS: Sodium Chloride 0.9% 1,000 ML IV SCH (10:42)
[2018-05-18 11:59] VITALS: BP 152/88; TEMP 98.2
== END 2018-05-18 12:05 | disposition swing bed (61) | DRG 690 ==
LOC: ERS 18:35 → 2SE 23:24
PROVIDERS: ADMIT Internal Medicine; ATTEND Internal Medicine
DX: N39.0 Urinary tract infection, site not specified (principal); S42.201A Unspecified fracture of upper end of right humerus, initial encounter for closed fracture; G45.9 Transient cerebral ischemic attack, unspecified; G93.40 Encephalopathy, unspecified; E87.1 Hypo-osmolality and hyponatremia; I50.30 Unspecified diastolic (congestive) heart failure; I11.0 Hypertensive heart disease with heart failure; I25.10 Atherosclerotic heart disease of native coronary artery without angina pectoris; I95.1 Orthostatic hypotension; I48.2 Chronic atrial fibrillation; E86.0 Dehydration; B96.20 Unspecified Escherichia coli [E. coli] as the cause of diseases classified elsewhere; Z85.3 Personal history of malignant neoplasm of breast; Z79.01 Long term (current) use of anticoagulants; Z95.0 Presence of cardiac pacemaker; W19.XXXA Unspecified fall, initial encounter; Y92.009 Unspecified place in unspecified non-institutional (private) residence as the place of occurrence of the external cause
CPT/HCPCS: 36415; 70450; 70496; 70498; 71045; 72125; 80048; 80053; 80061; 81003; 81015; 83880; 84484; 85014; 85018; 85025; 85049; 85610; 85730; 87077; 87086; 87186; 90471; 90662; 90670; 93005; 93306; 96374; G0008; G0009; G8978-GP-CM; G8979-GP-CJ; G8987-GO-CM; G8988-GO-CL; G8996-GN-CK; G8997-GN-CJ; J0360; J0696; J1650; J2405; J7050; S0028

== ENCOUNTER 2018-09-17 19:44 | Observation (INO) | payer MEDICARE ==
[2018-09-17] MEDS ORDERED: Aspirin Chewable 81 MG TAB ONE (19:57)
[2018-09-17] MEDS ORDERED: Pantoprazole 40 MG VIAL ONE (19:57)
[2018-09-17] MEDS ORDERED: Nitroglycerin 2% Ointment 1 INCH/1 GM Packet ONE (19:57)
[2018-09-17] MEDS ORDERED: Acetaminophen 500 MG TAB ONE (20:59)
[2018-09-17 21:51] LABS: Bilirubin Negative (Negative); Blood, Urine Negative (Negative); Clarity CLEAR (Clear); Glucose, Urine (Dipstick) Negative (Negative); Leukocyte Trace (Negative); Nitrite Positive (Negative); Protein, Urine (Dipstick) Negative (Neg-Trace); Specific Gravity, Urine 1.007 (1.002-1.036); Urobilinogen 0.2 mg/dL (0.2-1.0); pH, Urine 7.5 (5.0-9.0)
[2018-09-17 21:53] LABS: Bacteria/HPF 3+ HPF (None Seen); Hyaline Casts/LPF 0-3 HYALINE CAST LPF (0-3 Hyaline); Pathc Cast-AUWi Flag 0.29 (0-2.49); RBC/HPF 0-3 HPF (0-3); Squamous Epithelial 0-3 HPF (0-3); WBC/HPF 0-3 HPF (0-3)
[2018-09-17] MEDS ORDERED: Ondansetron ODT 4 MG TAB PO PRN (22:34)
--- NOTE | 2018-09-17 22:40 | HP ---
PRIMARY CARE PHYSICIAN: Dr. Nichols. CHIEF COMPLAINT: Chest pain/epigastric pain. HISTORY OF PRESENT ILLNESS: The patient is an 88-year-old female with past medical history of atrial fibrillation, has a pacemaker, hypertension, acid reflux, who presented to the emergency department as a transfer from outside ER for chest pain and epigastric pain. The patient's symptoms started like around 2:00 p.m. The patient reports that her symptoms have resolved. The patient was given nitroglycerin patch and aspirin at the outside ER. The patient reports compliant with her medication. The patient was accompanied by her caregivers. PAST MEDICAL HISTORY: Atrial fibrillation, hypertension, acid reflux, coronary artery disease. PAST SURGICAL HISTORY: Pacemaker placement, breast cancer status post mastectomy. SOCIAL HISTORY: Denies alcohol, smoking, or illicit drugs. FAMILY HISTORY: Father had [place]. ALLERGIES: NO KNOWN ALLERGIES. HOME MEDICATIONS: Include: 1. Eliquis. 2. Coreg. 3. Mirtazapine. 4. Lisinopril. 5. Omeprazole. REVIEW OF SYSTEMS: A 10-point review of systems is negative other than mentioned in the HPI. PHYSICAL EXAMINATION: VITAL SIGNS: Blood pressure 168/80, pulse 78, respiratory rate 20, O2 saturation 94% on room air. GENERAL: The patient is alert. HEENT: Head, atraumatic. Ears and nose, no gross abnormality noted. Throat, no exudate noted. NECK: No lymphadenopathy noted. CARDIOVASCULAR: Pacemaker present. Regular rate and rhythm. No murmur, rubs, or gallops noted. RESPIRATION: No wheezes. Clear bilaterally. ABDOMEN: Soft, nontender. Bowel sounds positive. EXTREMITIES: No edema noted. NEUROLOGIC: The patient is alert. SKIN: No rashes noted. DIAGNOSTIC DATA: Reviewed EKG from outside hospital and appears to be a paced rhythm per report. Chest x-ray reviewed, significant for cardiomegaly and mild pulmonary congestion and small effusions. LABORATORY DATA: The patient's labs were reviewed. The patient's CBC and BMP reviewed and looks to be unremarkable. BNP is 395. Her troponin is negative. ASSESSMENT AND PLAN: 1. Given patient's cardiac history, we will admit the patient for ACS rule out. Initial workup so far negative at this point. Tele and trend troponins. 2. Elevated BNP. The patient does not appear to be fluid overloaded at this point. We will continue to monitor. Reviewed echocardiogram from May 2018, ejection fraction of 55% to 60%. Moderately dilated atrium. Otherwise, it does not mention any diastolic or systolic heart failure. 3. History of atrial fibrillation. The patient has pacemaker. Continue home Eliquis. 4. Hypertension. Continue home medications. BP elevated on admission. 5. Gastroesophageal reflux disease. Continue home medication. 6. Code status. The patient is DNR, that was conformed by the caregivers. DNR form completed for hospital admission. 7. Medical power of attorney lawyer, that would be her daughter per patient. 8. Deep venous thrombosis prophylaxis addressed. Job ID: [id number]
[2018-09-18 00:19] VITALS: BMI 19.0
[2018-09-18 02:14] LABS: #Lymphocytes 1.3 thou/uL (1.20-3.40); #Monocytes 0.6 thou/uL (0.11-0.59); %Basophils 0.3 % (0.0-1.0); %Eosinophils 0.3 % (0.0-10.0); %Lymphocytes 14.3 % (21.0-51.0); %Monocytes 6.5 % (0.0-10.0); %Neutrophils 78.6 % (42.0-75.0); Mean Corpuscular HGB CONC 33.8 g/dL (32.0-36.0); Mean Corpuscular Hemoglobin 32.8 pg (27.0-31.0); Mean Platelet Volume 7.4 fL (7.4-10.4); Platelet Count 200 thou/uL (130-400); RBC Distribution Width 12.3 % (11.5-14.5); Red Blood Cell (RBC) Count 3.65 mill/uL (4.20-5.40); White Blood Cell (WBC) Count 8.9 thou/uL (4.8-10.8)
[2018-09-18 02:37] LABS: Troponin I Less than 0.010 ng/mL (< 0.028)
[2018-09-18 02:40] LABS: Anion Gap 14 mmol/L (10-20); BUN (Urea Nitrogen) 13 mg/dL (9.8-20.1); Calc. Creatinine Clearance 43 mL/min (70-130); Calcium 9.3 mg/dL (7.8-10.44); Carbon Dioxide 23 mmol/L (23-31); Cardiac Risk 3.7 (Less than 4.5); Chloride 104 mmol/L (98-107); Cholesterol 235 mg/dl (< 200 Desired); Estimated GFR-MDRD 67; Glucose 105 mg/dL (83-110); HDL Cholesterol 63 mg/dL (>60 Neg Risk); LDL Cholesterol, Calculated 156 mg/dL; Potassium 3.8 mmol/L (3.5-5.1); Sodium 137 mmol/L (136-145); Triglycerides 82 mg/dL (Less than 150)
[2018-09-18] MEDS: Acetaminophen 325 MG TAB PO PRN ×2 (04:24→08:16)
[2018-09-18] MEDS ORDERED: Melatonin 3 MG TAB PO PRN (06:31)
[2018-09-18] MEDS: Apixaban 5 MG TAB PO SCH ×2 (08:12→20:50)
[2018-09-18] MEDS: Lisinopril 10 MG TAB PO SCH ×2 (08:12→20:50)
[2018-09-18] MEDS: Carvedilol 6.25 MG TAB PO SCH ×2 (08:13→20:51)
[2018-09-18] MEDS: Fluticasone Propionate Nasal Spray 16 gm Bottle NASAL SCH (08:13)
[2018-09-18] MEDS: Brimonidine Tartrate 0.2% Ophth Soln 5 ml Bottle EA EYE SCH ×2 (08:13→20:52)
[2018-09-18] MEDS: Timolol 0.5% Ophth Soln 5 ml Bottle EA EYE SCH ×2 (08:14→20:53)
[2018-09-18] MEDS ORDERED: Non-Formulary Item 1 EACH (Omeprazole [Omeprazole] 20 MG) PO SCH (09:00)
[2018-09-18] MEDS ORDERED: Prevnar 13-Val Conj/PF 0.5 ML SYRINGE IM ONE (09:00)
[2018-09-18] MEDS ORDERED: Non-Formulary Item 1 EACH (Omeprazole [Omeprazole] 40 MG) PO SCH (09:00)
--- NOTE | 2018-09-18 09:38 | PDOC.PN ---
- Subjective Encounter Start Date: 09/18/18 Encounter Start Time: 09:36 Patient lying in bed, reports feeling better. She has been complaining of urinary frequency and dysuria for the last few days. She denies chest pain, but reports some shortness of breath last night that has improved this morning. UA showing signs of UTI urine culture pending. Chest xray showing mild pleural effusion. Last echo reviewed and no mention of heart failure, but BNP elevated. - Objective Resuscitation Status - Order Detail: 09/17/18 21:50 Resuscitation Status Routine Resuscitation Status: DNAR: NO Resuscitation Discussed with: with Pt and caregiver. Pt has out of hosp DNR. Staff informed MAR Reviewed: Yes Vital Signs & Weight: Vital Signs (12 hours) Temp Pulse Resp BP BP Pulse Ox 09/18/18 08:00 97.7 F 61 20 186/79 H 96 09/18/18 06:16 96 09/18/18 05:50 60 160/73 H 09/18/18 05:09 62 20 178/81 H 97 09/18/18 04:51 97.9 F 63 20 175/80 H 95 09/18/18 03:28 91 177/84 H 09/18/18 00:45 61 161/75 H 94 L 09/18/18 00:28 86 198/99 H 95 09/17/18 23:29 98.2 F 62 19 143/67 H 96 Weight Weight 121 lb 8 oz I&O: 09/17/18 09/18/18 09/19/18 06:59 06:59 06:59 Intake Total 1040 Output Total 1000 Balance 40 Result Diagrams: 09/18/18 02:03 09/18/18 02:03 Radiology Reviewed by me: Yes Phys Exam - Physical Examination Constitutional: NAD HEENT: PERRLA, moist MMs Neck: no nodes, full ROM Decreased aeration at bases Cardiovascular: RRR, no significant murmur Gastrointestinal: soft, positive bowel sounds Mild suprapubic tenderness Musculoskeletal: no edema, pulses present Neurological: non-focal, moves all 4 limbs Lymphatic: no nodes Psychiatric: normal affect Skin: no rash, cap refill <2 seconds Dx/Plan (1) UTI (urinary tract infection) Status: Acute (2) Chronic atrial fibrillation Code(s): I48.2 - CHRONIC ATRIAL FIBRILLATION Status: Chronic Comment: appreciate cardiology service input. Awaiting EP consult. (3) HTN (hypertension) Code(s): I10 - ESSENTIAL (PRIMARY) HYPERTENSION Status: Chronic Comment: controlled - Plan cont current plan of care, continue antibiotics, PT/OT * Continue medical management including home dose eliquis for chronic a fib. * Urine showing signs of UTI, await culture * Start ceftriaxone * Shortness of breath last night, chest xray showing mild pleural effusion, give lasix 20mg x1 * Troponin negative x3, remains asymptomatic * PT/OT
[2018-09-18] MEDS ORDERED: Furosemide 20 MG TAB PO SCH (09:45)
[2018-09-18] MEDS: cefTRIAXone\\ROCEPHIN 1 GM in Sodium Chloride 0.9% 100 ML IVPB SCH (09:59)
[2018-09-18] MEDS ORDERED: Mirtazapine 15 MG TAB PO SCH (21:00)
[2018-09-19] MEDS: Lisinopril 10 MG TAB PO SCH (08:47)
[2018-09-19] MEDS: Apixaban 5 MG TAB PO SCH (08:47)
[2018-09-19] MEDS: Carvedilol 6.25 MG TAB PO SCH (08:47)
[2018-09-19] MEDS: Timolol 0.5% Ophth Soln 5 ml Bottle EA EYE SCH (08:48)
[2018-09-19] MEDS: Brimonidine Tartrate 0.2% Ophth Soln 5 ml Bottle EA EYE SCH (08:48)
[2018-09-19] MEDS: Fluticasone Propionate Nasal Spray 16 gm Bottle NASAL SCH (10:24)
[2018-09-19] MEDS: cefTRIAXone\\ROCEPHIN 1 GM in Sodium Chloride 0.9% 100 ML IVPB SCH (10:24)
[2018-09-19 12:32] VITALS: TEMP 98.3
[2018-09-19 15:21] VITALS: BP 131/75
== END 2018-09-19 15:22 | disposition home or self-care (01) ==
LOC: ERS 19:44 → 2SW 22:30
PROVIDERS: ADMIT Family Medicine; ATTEND Family Medicine
DX: R07.9 Chest pain, unspecified (principal); R10.13 Epigastric pain; I10 Essential (primary) hypertension; I48.2 Chronic atrial fibrillation; I25.10 Atherosclerotic heart disease of native coronary artery without angina pectoris; N39.0 Urinary tract infection, site not specified; K21.9 Gastro-esophageal reflux disease without esophagitis; Z95.0 Presence of cardiac pacemaker; Z85.3 Personal history of malignant neoplasm of breast; Z90.10 Acquired absence of unspecified breast and nipple; Z91.040 Latex allergy status; Z88.1 Allergy status to other antibiotic agents; Z88.0 Allergy status to penicillin; Z88.2 Allergy status to sulfonamides; Z79.51 Long term (current) use of inhaled steroids; Z79.01 Long term (current) use of anticoagulants; Z79.2 Long term (current) use of antibiotics; Z79.899 Other long term (current) drug therapy
CPT/HCPCS: 80048; 80061; 83880; 84484 ×2; 85025; 87077; 87086; 87186; 93005; 94760; 96361; 96365; 96375; 96376; 97139 ×4; 99285; G0378 ×2; 36415; 81003; 81015; 96374; C9113; J0696; J7050

== ENCOUNTER 2020-06-26 22:53 | Inpatient (IN) | payer MEDICARE ==
[2020-06-26] MEDS ORDERED: methylPREDNISolone Sod Succ/PF 125 MG/2 ML VIAL ONE (23:52)
[2020-06-27 00:21] LABS: SARS-CoV-2 NAA Rapid Test DETECTED (NotDetected)
[2020-06-27] MEDS ORDERED: Albuterol Sulfate 2.5 mg/3 ml Neb NEB PRN (00:29)
[2020-06-27] MEDS ORDERED: PROVENTIL INHALER 6.7 G (200 INHALATIONS) INH PRN (00:52)
--- NOTE | 2020-06-27 01:10 | PDOC.BPN ---
- Brief Progress Note [id number] HP
[2020-06-27 01:40] LABS: Troponin I 0.333 ng/mL (< 0.028)
[2020-06-27] MEDS: Azithromycin 500 MG in Sodium Chloride 0.9% 250 ML 250 ML IVPB SCH (03:08)
[2020-06-27] MEDS: cefTRIAXone\\ROCEPHIN 1 GM in Sodium Chloride 0.9% 100 ML IVPB SCH (03:08)
--- NOTE | 2020-06-27 03:31 | HP ---
CHIEF COMPLAINT: Shortness of breath. HISTORY OF PRESENT ILLNESS: Ms. Nichols is an 89-year-old female with past medical history of coronary artery disease, hypertension, atrial fibrillation, cardiac pacemaker, on Eliquis, presents to [facility] with shortness of breath. Workup in the emergency room, the patient was in mild respiratory distress. Shortness of breath started earlier in the afternoon. She denies to be having fever, cough, nausea, loss of taste or smell or diarrhea. Her most recent caregivers are both in the hospital with COVID pneumonia. She is currently taking Keflex for UTI. She denies any pain. Denies any history of DVT or PE. Workup in the emergency room including imaging studies, the patient was found to have bilateral ground-glass opacities/infiltrates consistent with viral pneumonia. COVID-19 test was done, which was positive. The patient was given bronchodilators, IV steroids, and IV antibiotics. I requested to transfer the patient to our medical facility for further management. D-dimer was elevated, but was negative for PE. The patient is being admitted to the hospital for further management. PAST MEDICAL HISTORY: As mentioned above in history of present illness. PAST SURGICAL HISTORY: 1. Breast cancer. 2. Gastric bypass. 3. Pacemaker. 4. Breast cancer surgery. PAST PSYCHIATRIC HISTORY: Dementia. SOCIAL HISTORY: No history of alcohol use, smoking history. Lives at home with family. HOME MEDICATIONS: See home medication reconciliation form for updated medications. ALLERGIES: ALLERGIC TO LATEX, LEVAQUIN, PENICILLIN, PHENAZOPYRIDINE, AND SULFA. REVIEW OF SYSTEMS: Review of 14 systems negative except what is mentioned in history of present illness. PHYSICAL EXAMINATION: GENERAL: She is awake, alert, in mild distress. VITAL SIGNS: Blood pressure is 105/51, pulse is 64, respiratory rate is 39, oxygen saturation 93% on room air, and temperature 98.3. HEAD AND NECK: Normocephalic and atraumatic. NECK: Supple. CHEST: Coarse bilateral breath sounds. HEART: S1 and S2. Regular. ABDOMEN: Soft, nontender. Bowel sounds present. NEUROLOGIC: Awake, moving extremities. PSYCH: Unable to assess. EXTREMITIES: No clubbing or cyanosis. GENITOURINARY: No suprapubic tenderness. No flank tenderness. LABORATORY DATA: Hemoglobin 13.8 and platelets 186. Sodium 135, potassium 4.3, BUN is 29, and creatinine is 0.9. Troponin 0.04. CT of the chest as mentioned above in history of present illness. ASSESSMENT: 1. Pneumonia. 2. COVID-19 virus infection. 3. Chronic obstructive pulmonary disease with? exacerbation. 4. Pacemaker. 5. History of atrial fibrillation. 6. Hypertension. PLAN: 1. Admit. 2. Isolation precautions. 3. Oxygen to keep saturation more than 92%. 4. Bronchodilator as needed. 5. IV steroids. 6. Empiric IV antibiotics. 7. Reconcile home medications. 8. DVT prophylaxis. Continue home anticoagulants. 9. Expected length of stay, 2 midnights or more. Job ID: [id number]
[2020-06-27 05:42] LABS: Troponin I 0.241 ng/mL (< 0.028)
[2020-06-27] MEDS ORDERED: Melatonin 3 MG TAB PO PRN (08:46)
[2020-06-27] MEDS ORDERED: Cephalexin 250 MG CAP PO SCH (09:15)
[2020-06-27] MEDS ORDERED: Brimonidine Tartrate 0.2% Ophth Soln 5 ml Bottle EA EYE PRN (09:27)
[2020-06-27] MEDS ORDERED: Timolol 0.5% Ophth Soln 5 ml Bottle EA EYE PRN (09:30)
[2020-06-27] MEDS: Famotidine/PF 20 mg/2ml Vial SLOW IVP SCH (09:46)
[2020-06-27] MEDS: Aspirin 325 mg Enteric Coated Tablet PO SCH (09:47)
[2020-06-27] MEDS: Apixaban 5 MG TAB PO SCH ×2 (09:47→19:43)
[2020-06-27] MEDS: Carvedilol 3.125 MG TAB PO SCH ×2 (09:47→19:43)
[2020-06-27] MEDS: Lisinopril 10 MG TAB PO SCH ×2 (09:48→19:43)
[2020-06-27] MEDS: Dexamethasone 6 MG in Sodium Chloride 0.9% 50 ML IVPB SCH (10:18)
[2020-06-27] MEDS: Rosuvastatin 5 MG TAB PO SCH (19:43)
[2020-06-28] MEDS: cefTRIAXone\\ROCEPHIN 1 GM in Sodium Chloride 0.9% 100 ML IVPB SCH ×2 (00:35→21:14)
[2020-06-28] MEDS: Azithromycin 500 MG in Sodium Chloride 0.9% 250 ML 250 ML IVPB SCH ×2 (01:23→22:40)
[2020-06-28] MEDS: Acetaminophen 325 MG TAB PO PRN ×4 (03:50→21:19)
[2020-06-28] MEDS: Famotidine/PF 20 mg/2ml Vial SLOW IVP SCH (08:56)
[2020-06-28] MEDS: Dexamethasone 6 MG in Sodium Chloride 0.9% 50 ML IVPB SCH (08:56)
[2020-06-28] MEDS: Aspirin 325 mg Enteric Coated Tablet PO SCH (08:57)
[2020-06-28] MEDS: Furosemide 20 MG TAB PO SCH (08:57)
[2020-06-28] MEDS: Carvedilol 3.125 MG TAB PO SCH ×2 (08:57→21:15)
[2020-06-28] MEDS: Cephalexin 250 MG CAP PO SCH (08:57)
[2020-06-28] MEDS: Zinc Sulfate 220 MG CAP PO SCH (08:57)
[2020-06-28] MEDS: Apixaban 5 MG TAB PO SCH ×2 (08:57→21:15)
[2020-06-28] MEDS: Ascorbic Acid 500 mg Chewable Tablet PO SCH (08:57)
[2020-06-28] MEDS: Lisinopril 10 MG TAB PO SCH ×2 (08:58→21:15)
--- NOTE | 2020-06-28 18:02 | PDOC.HOSPP ---
- Subjective Encounter Date: 06/28/20 Encounter Time: 10:00 Subjective: Patient seen for follow-up regarding COVID-19 infection. She denies chest pain. She reports abdominal discomfort. She reports back pain. She denies nausea or vomiting. - Objective Vital Signs & Weight: Vital Signs (12 hours) Temp Pulse Resp BP Pulse Ox 06/28/20 15:50 97.7 F 89 22 H 178/103 H 98 06/28/20 12:00 63 20 125/74 95 06/28/20 08:00 98.2 F 72 22 H 146/78 H 96 Weight Weight 124 lb 8 oz I&O: 06/27/20 06/28/20 06/29/20 06:59 06:59 06:59 Intake Total 960 1430 Output Total 700 1000 Balance 260 430 Additional Labs: I reviewed patient's labs and MAR EKG Reviewed by me: Yes (V paced rhythm on telemetry) Hospitalist ROS - Review of Systems Gastrointestinal: reports: abdominal pain. denies: nausea, vomiting, diarrhea, constipation, melena, hematochezia Musculoskeletal: reports: back pain. denies: neck pain, shoulder pain, arm pain, hand pain, leg pain, foot pain - Medication Medications: Active Medications Generic Name Dose Route Start Last Admin Trade Name Freq PRN Reason Stop Dose Admin Acetaminophen 650 mg 06/27/20 00:29 06/28/20 13:55 Acetaminophen 325 Mg Tab PO 650 mg Q4H PRN Administration Headache/Fever/Mild Pain (1-3) Apixaban 2.5 mg 06/27/20 09:00 06/28/20 08:57 Apixaban 5 Mg Tab PO 2.5 mg BID ANNE-MARIE Administration Ascorbic Acid 1,000 mg 06/28/20 09:00 06/28/20 08:57 Ascorbic Acid 500 Mg Chewable Tablet PO 1,000 mg DAILY ANNE-MARIE Administration Aspirin 325 mg 06/27/20 09:00 06/28/20 08:57 Aspirin 325 Mg Enteric Coated Tablet PO 325 mg DAILY ANNE-MARIE Administration Carvedilol 3.125 mg 06/27/20 09:00 06/28/20 08:57 Carvedilol 3.125 Mg Tab PO 3.125 mg BID ANNE-MARIE Administration Cephalexin 500 mg 06/28/20 09:00 06/28/20 08:57 Cephalexin 250 Mg Cap PO 500 mg DAILY ANNE-MARIE Administration Famotidine 20 mg 06/27/20 09:00 06/28/20 08:56 Famotidine/Pf 20 Mg/2ml Vial SLOW IVP 20 mg DAILY ANNE-MARIE Administration Furosemide 20 mg 06/28/20 09:00 06/28/20 08:57 Furosemide 20 Mg Tab PO 20 mg MWF ANNE-MARIE Administration Ceftriaxone Sodium 1 gm/ 100 mls @ 200 mls/hr 06/27/20 01:00 06/28/20 00:35 Sodium Chloride IVPB 100 mls Q24HR ANNE-MARIE Administration Azithromycin 500 mg/ Sodium 250 mls @ 250 mls/hr 06/27/20 02:00 06/28/20 01:23 Chloride IVPB 250 mls Q24HR ANNE-MARIE Administration Dexamethasone 6 mg/ Sodium 50.6 mls @ 100 mls/hr 06/27/20 09:00 06/28/20 08:56 Chloride IVPB 50.6 mls DAILY ANNE-MARIE Administration Lisinopril 10 mg 06/27/20 09:00 06/28/20 08:58 Lisinopril 10 Mg Tab PO 10 mg BID ANNE-MARIE Administration Pantoprazole Sodium 40 mg 06/28/20 09:00 06/28/20 08:58 Pantoprazole 40 Mg Tab PO 40 mg DAILY ANNE-MARIE Administration Rosuvastatin Calcium 5 mg 06/27/20 21:00 06/27/20 19:43 Rosuvastatin 5 Mg Tab PO 5 mg HS ANNE-MARIE Administration Zinc Sulfate 220 mg 06/28/20 09:00 06/28/20 08:57 Zinc Sulfate 220 Mg Cap PO 220 mg DAILY ANNE-MARIE Administration - Exam General Appearance: NAD Eye: anicteric sclera ENT: no oropharyngeal lesions Neck: supple Heart: RRR Respiratory: CTAB Gastrointestinal: soft, non-tender Extremities: no clubbing Psychiatric: normal affect, normal behavior Hosp A/P (1) COVID-19 virus infection Code(s): U07.1 - COVID-19 Status: Acute (2) Elevated troponin Code(s): R77.8 - OTHER SPECIFIED ABNORMALITIES OF PLASMA PROTEINS Status: Acute (3) Hyperlipidemia Code(s): E78.5 - HYPERLIPIDEMIA, UNSPECIFIED Status: Chronic (4) Chronic atrial fibrillation Code(s): I48.2 - CHRONIC ATRIAL FIBRILLATION * DO NOT USE * Status: Chronic - Plan Continue dexamethasone, zinc and vitamin C. Cardiology service has been consulted, await input. Patient denies chest pain. Elevated troponin could be secondary to demand ischemia. Continue statin. Trial tramadol for back pain.
[2020-06-28] MEDS ORDERED: traMADol HCl 50 MG TAB PO PRN (18:06)
[2020-06-28] MEDS: Rosuvastatin 5 MG TAB PO SCH (21:15)
[2020-06-29] MEDS ORDERED: Promethazine HCl 12.5 MG in Sodium Chloride 0.9% 50 ML IVPB SCH (02:00)
[2020-06-29] MEDS ORDERED: Promethazine 25 MG TAB PO SCH (02:45)
[2020-06-29 05:34] LABS: #Basophils 0.1 thou/uL (0.0-0.2); #Lymphocytes 0.4 thou/uL (1.20-3.40); #Monocytes 0.5 thou/uL (0.11-0.59); %Basophils 0.8 % (0.0-1.0); %Lymphocytes 4.3 % (21.0-51.0); %Monocytes 5.6 % (0.0-10.0); %Neutrophils 89.3 % (42.0-75.0); Hemoglobin 11.7 g/dL (12.0-16.0); Mean Corpuscular HGB CONC 34.5 g/dL (32.0-36.0); Mean Corpuscular Hemoglobin 32.8 pg (27.0-31.0); Mean Platelet Volume 7.4 fL (7.4-10.4); Platelet Count 261 thou/uL (130-400); RBC Distribution Width 11.4 % (11.5-14.5); Red Blood Cell (RBC) Count 3.58 mill/uL (4.20-5.40); White Blood Cell (WBC) Count 8.9 thou/uL (4.8-10.8)
[2020-06-29 05:51] LABS: Anion Gap 20 mmol/L (10-20); BUN (Urea Nitrogen) 45 mg/dL (9.8-20.1); Calc. Creatinine Clearance 29 mL/min (70-130); Calcium 8.8 mg/dL (7.8-10.44); Carbon Dioxide 19 mmol/L (23-31); Chloride 102 mmol/L (98-107); Estimated GFR-MDRD 43; Glucose 98 mg/dL (83-110); Potassium 3.8 mmol/L (3.5-5.1); Sodium 137 mmol/L (136-145)
[2020-06-29] MEDS: Cephalexin 250 MG CAP PO SCH (09:54)
[2020-06-29] MEDS: Ascorbic Acid 500 mg Chewable Tablet PO SCH (09:54)
[2020-06-29] MEDS: Zinc Sulfate 220 MG CAP PO SCH (09:55)
[2020-06-29] MEDS: Apixaban 5 MG TAB PO SCH ×2 (09:55→19:50)
[2020-06-29] MEDS: Carvedilol 3.125 MG TAB PO SCH (09:55)
[2020-06-29] MEDS: Lisinopril 10 MG TAB PO SCH ×2 (09:55→19:50)
[2020-06-29] MEDS: Famotidine/PF 20 mg/2ml Vial SLOW IVP SCH (09:55)
[2020-06-29] MEDS: Aspirin 325 mg Enteric Coated Tablet PO SCH (09:55)
[2020-06-29] MEDS: Dexamethasone 6 MG in Sodium Chloride 0.9% 50 ML IVPB SCH (10:04)
[2020-06-29] MEDS: Ondansetron PF 4 MG/2 ML Vial IVP PRN ×2 (13:32→20:12)
--- NOTE | 2020-06-29 16:28 | PDOC.HOSPP ---
- Subjective Encounter Date: 06/29/20 Encounter Time: 16:26 Subjective: Ms. Nichols is an 89-year-old woman who was admitted to the hospital due to COVID- 19 pneumonia. She reportedly had exposure to 2 of her caregivers who are currently hospitalized with COVID-19 symptoms. Right now she really has no other significant complaint. She is on room air and saturating above 95%. Her only other issue right now what she wants to have a bowel movement. I will continue supportive care with empiric antibiotics, steroid, zinc sulfate and vitamin C. - Objective Vital Signs & Weight: Vital Signs (12 hours) Temp Pulse Resp BP Pulse Ox 06/29/20 12:02 97.6 F 52 L 22 H 172/84 H 94 L 06/29/20 09:23 96.9 F L 63 28 H 186/88 H 97 06/29/20 05:41 92 L Weight Weight 124 lb 8 oz I&O: 06/28/20 06/29/20 06/30/20 06:59 06:59 06:59 Intake Total 960 1670 Output Total 700 1150 Balance 260 520 Result Diagrams: 06/29/20 05:22 06/29/20 05:22 Radiology Reviewed by me: Yes EKG Reviewed by me: Yes Hospitalist ROS - Review of Systems ROS unobtainable: due to mental status Constitutional: reports: weakness Respiratory: reports: cough, dry, shortness of breath, SOB with excertion Cardiovascular: reports: chest pain Neurological: reports: weakness, numbness - Medication Medications: Active Medications Generic Name Dose Route Start Last Admin Trade Name Freq PRN Reason Stop Dose Admin Acetaminophen 650 mg 06/27/20 00:29 06/28/20 21:19 Acetaminophen 325 Mg Tab PO 650 mg Q4H PRN Administration Headache/Fever/Mild Pain (1-3) Apixaban 2.5 mg 06/27/20 09:00 06/29/20 09:55 Apixaban 5 Mg Tab PO 2.5 mg BID ANNE-MARIE Administration Ascorbic Acid 1,000 mg 06/28/20 09:00 06/29/20 09:54 Ascorbic Acid 500 Mg Chewable Tablet PO 1,000 mg DAILY ANNE-MARIE Administration Aspirin 325 mg 06/27/20 09:00 06/29/20 09:55 Aspirin 325 Mg Enteric Coated Tablet PO 325 mg DAILY ANNE-MARIE Administration Carvedilol 3.125 mg 06/27/20 09:00 06/29/20 09:55 Carvedilol 3.125 Mg Tab PO 3.125 mg BID ANNE-MARIE Administration Famotidine 20 mg 06/27/20 09:00 06/29/20 09:55 Famotidine/Pf 20 Mg/2ml Vial SLOW IVP 20 mg DAILY ANNE-MARIE Administration Furosemide 20 mg 06/28/20 09:00 06/28/20 08:57 Furosemide 20 Mg Tab PO 20 mg MWF ANNE-MARIE Administration Dexamethasone 6 mg/ Sodium 50.6 mls @ 100 mls/hr 06/27/20 09:00 06/29/20 10:04 Chloride IVPB 50.6 mls DAILY ANNE-MARIE Administration Ceftriaxone Sodium 1 gm/ 100 mls @ 200 mls/hr 06/28/20 22:00 06/28/20 21:14 Sodium Chloride IVPB 100 mls 2200 ANNE-MARIE Administration Azithromycin 500 mg/ Sodium 250 mls @ 250 mls/hr 06/28/20 23:00 06/28/20 22:40 Chloride IVPB 250 mls 2300 ANNE-MARIE Administration Lisinopril 10 mg 06/27/20 09:00 06/29/20 09:55 Lisinopril 10 Mg Tab PO 10 mg BID ANNE-MARIE Administration Melatonin 3 mg 06/27/20 08:46 06/28/20 21:15 Melatonin 3 Mg Tab PO 3 mg HS PRN Administration Insomnia Ondansetron HCl 4 mg 06/29/20 12:55 06/29/20 13:32 Ondansetron Pf 4 Mg/2 Ml Vial IVP 4 mg Q6H PRN Administration Nausea/Vomiting Rosuvastatin Calcium 5 mg 06/27/20 21:00 06/28/20 21:15 Rosuvastatin 5 Mg Tab PO 5 mg HS ANNE-MARIE Administration Zinc Sulfate 220 mg 06/28/20 09:00 06/29/20 09:55 Zinc Sulfate 220 Mg Cap PO 220 mg DAILY ANNE-MARIE Administration - Exam General Appearance: awake alert Eye: PERRL ENT: normocephalic atraumatic, no oropharyngeal lesions, moist mucosa Neck: supple, symmetric Heart: RRR, no murmur, no gallops Respiratory: CTAB, no wheezes, no rales, no ronchi, normal chest expansion, no tachypnea, normal percussion Gastrointestinal: soft, non-tender, non-distended, normal bowel sounds, no palpable masses, no hepatomegaly, no bruit, no guarding, no rigidity Extremities: no cyanosis, no clubbing Skin: normal turgor Neurological: cranial nerve grossly intact, normal sensation to touch, no weakness, no focal deficits, no new deficit Musculoskeletal: normal tone, normal strength, no muscle wasting Psychiatric: normal affect, normal behavior, A&O x 3, oriented to person, or iented to place, oriented to time Hosp A/P (1) COVID-19 virus infection Code(s): U07.1 - COVID-19 Status: Acute Plan: Continue supportive care with IV antibiotics. Follow-up on active cultures. (2) Elevated troponin Code(s): R77.8 - OTHER SPECIFIED ABNORMALITIES OF PLASMA PROTEINS Status: Acute Plan: I suspect this is non-TN elevation in her troponin secondary to respiratory issues. She denied any chest pain when I visited with her. No further work-up indicated. (3) Accelerated hypertension Code(s): I10 - ESSENTIAL (PRIMARY) HYPERTENSION Status: Acute Plan: We will work on optimizing her blood pressure medicines. - Plan old records reviewed/req, continue antibiotics, PT/OT, clinical social worker, DVT proph w/lovenox
[2020-06-29] MEDS ORDERED: Bisacodyl 5 MG TAB PO PRN (16:30)
[2020-06-29] MEDS: Carvedilol 6.25 MG TAB PO SCH (17:11)
[2020-06-29] MEDS: Rosuvastatin 5 MG TAB PO SCH (19:50)
[2020-06-29] MEDS: cefTRIAXone\\ROCEPHIN 1 GM in Sodium Chloride 0.9% 100 ML IVPB SCH (22:34)
[2020-06-29] MEDS: Azithromycin 500 MG in Sodium Chloride 0.9% 250 ML 250 ML IVPB SCH (23:50)
[2020-06-30 05:02] LABS: #Lymphocytes 0.4 thou/uL (1.20-3.40); #Monocytes 0.3 thou/uL (0.11-0.59); #Neutrophils 5.9 thou/uL (1.40-6.50); %Eosinophils 0.1 % (0.0-10.0); %Lymphocytes 5.8 % (21.0-51.0); %Monocytes 4.9 % (0.0-10.0); %Neutrophils 89.2 % (42.0-75.0); Hemoglobin 10.8 g/dL (12.0-16.0); Mean Corpuscular HGB CONC 32.5 g/dL (32.0-36.0); Mean Corpuscular Hemoglobin 30.6 pg (27.0-31.0); Mean Corpuscular Volume 94.1 fL (78.0-98.0); Mean Platelet Volume 7.2 fL (7.4-10.4); Platelet Count 261 thou/uL (130-400); RBC Distribution Width 11.3 % (11.5-14.5); Red Blood Cell (RBC) Count 3.51 mill/uL (4.20-5.40); White Blood Cell (WBC) Count 6.6 thou/uL (4.8-10.8)
[2020-06-30 05:24] LABS: Anion Gap 15 mmol/L (10-20); BUN (Urea Nitrogen) 36 mg/dL (9.8-20.1); Calc. Creatinine Clearance 41 mL/min (70-130); Calcium 8.4 mg/dL (7.8-10.44); Carbon Dioxide 24 mmol/L (23-31); Chloride 101 mmol/L (98-107); Estimated GFR-MDRD 63; Glucose 99 mg/dL (83-110); Potassium 3.8 mmol/L (3.5-5.1); Sodium 136 mmol/L (136-145)
[2020-06-30] MEDS: Famotidine/PF 20 mg/2ml Vial SLOW IVP SCH ×2 (07:20)
[2020-06-30] MEDS: Aspirin 325 mg Enteric Coated Tablet PO SCH (07:21)
[2020-06-30] MEDS: Apixaban 5 MG TAB PO SCH ×2 (07:21→22:00)
[2020-06-30] MEDS: Zinc Sulfate 220 MG CAP PO SCH (07:21)
[2020-06-30] MEDS: Polyethylene Glycol 3350 17 GM Packet PO SCH (07:21)
[2020-06-30] MEDS: Ascorbic Acid 500 mg Chewable Tablet PO SCH (07:21)
[2020-06-30] MEDS: Carvedilol 6.25 MG TAB PO SCH ×2 (07:22→16:46)
[2020-06-30] MEDS: Lisinopril 10 MG TAB PO SCH ×2 (07:22→22:00)
[2020-06-30] MEDS ORDERED: Famotidine 20 MG TAB PO SCH (10:15)
[2020-06-30] MEDS: Dexamethasone 6 MG in Sodium Chloride 0.9% 50 ML IVPB SCH (10:18)
[2020-06-30] MEDS ORDERED: Dexamethasone 4 MG TAB PO SCH (10:30)
[2020-06-30] MEDS: Lorazepam 0.5 MG TAB PO PRN (11:06)
--- NOTE | 2020-06-30 15:18 | PDOC.HOSPP ---
- Subjective Encounter Date: 06/30/20 Encounter Time: 15:16 Subjective: Ms. Nichols is an 89-year-old female who was admitted to the hospital with COVID-19 and respiratory failure. She is doing really well since her admission. - Objective Vital Signs & Weight: Vital Signs (12 hours) Temp Pulse Resp BP Pulse Ox 06/30/20 11:09 98.2 F 80 19 172/86 H 98 06/30/20 07:30 97.6 F 62 20 170/79 H 100 06/30/20 04:00 97.4 F L 71 16 141/82 H 95 Weight Weight 124 lb 8 oz I&O: 06/29/20 06/30/20 07/01/20 06:59 06:59 06:59 Intake Total 1670 1520 Output Total 1150 600 Balance 520 920 Result Diagrams: 06/30/20 04:51 06/30/20 04:51 Radiology Reviewed by me: Yes EKG Reviewed by me: Yes Hospitalist ROS - Review of Systems ROS unobtainable: due to mental status Constitutional: reports: sweats, weakness, malaise Gastrointestinal: reports: nausea Neurological: reports: weakness, numbness, change in speech, confusion - Medication Medications: Active Medications Generic Name Dose Route Start Last Admin Trade Name Freq PRN Reason Stop Dose Admin Acetaminophen 650 mg 06/27/20 00:29 06/28/20 21:19 Acetaminophen 325 Mg Tab PO 650 mg Q4H PRN Administration Headache/Fever/Mild Pain (1-3) Apixaban 2.5 mg 06/27/20 09:00 06/30/20 07:21 Apixaban 5 Mg Tab PO 2.5 mg BID ANNE-MARIE Administration Ascorbic Acid 1,000 mg 06/28/20 09:00 06/30/20 07:21 Ascorbic Acid 500 Mg Chewable Tablet PO 1,000 mg DAILY ANNE-MARIE Administration Aspirin 325 mg 06/27/20 09:00 06/30/20 07:21 Aspirin 325 Mg Enteric Coated Tablet PO 325 mg DAILY ANNE-MARIE Administration Carvedilol 6.25 mg 06/29/20 17:00 06/30/20 07:22 Carvedilol 6.25 Mg Tab PO 6.25 mg BID-WM ANNE-MARIE Administration Furosemide 20 mg 06/28/20 09:00 06/28/20 08:57 Furosemide 20 Mg Tab PO 20 mg MWF ANNE-MARIE Administration Ceftriaxone Sodium 1 gm/ 100 mls @ 200 mls/hr 06/28/20 22:00 06/29/20 22:34 Sodium Chloride IVPB 100 mls 2200 ANNE-MARIE Administration Azithromycin 500 mg/ Sodium 250 mls @ 250 mls/hr 06/28/20 23:00 06/29/20 23 :50 Chloride IVPB 250 mls 2300 ANNE-MARIE Administration Lisinopril 10 mg 06/27/20 09:00 06/30/20 07:22 Lisinopril 10 Mg Tab PO 10 mg BID ANNE-MARIE Administration Lorazepam 0.5 mg 06/30/20 11:03 06/30/20 11:06 Lorazepam 0.5 Mg Tab PO 0.5 mg TIDPRN PRN Administration Anxiety Melatonin 3 mg 06/27/20 08:46 06/28/20 21:15 Melatonin 3 Mg Tab PO 3 mg HS PRN Administration Insomnia Ondansetron HCl 4 mg 06/29/20 12:55 06/29/20 20:12 Ondansetron Pf 4 Mg/2 Ml Vial IVP 4 mg Q6H PRN Administration Nausea/Vomiting Polyethylene Glycol 17 gm 06/30/20 09:00 06/30/20 07:21 Polyethylene Glycol 3350 17 Gm Packet PO 17 gm DAILY ANNE-MARIE Administration Rosuvastatin Calcium 5 mg 06/27/20 21:00 06/29/20 19:50 Rosuvastatin 5 Mg Tab PO 5 mg HS ANNE-MARIE Administration Zinc Sulfate 220 mg 06/28/20 09:00 06/30/20 07:21 Zinc Sulfate 220 Mg Cap PO 220 mg DAILY ANNE-MARIE Administration - Exam General Appearance: NAD, awake alert Eye: PERRL, anicteric sclera ENT: normocephalic atraumatic, no oropharyngeal lesions, moist mucosa Neck: supple, symmetric, no JVD, no thyromegaly, no lymphadenopathy Heart: RRR, no murmur, no gallops Respiratory: CTAB, no wheezes, no rales, no ronchi Gastrointestinal: soft, non-tender, non-distended, normal bowel sounds Extremities: no cyanosis, no clubbing, no edema Skin: normal turgor, no lesions, no rashes Neurological: cranial nerve grossly intact, normal sensation to touch, no weakness, no focal deficits Musculoskeletal: normal tone, normal strength, no muscle wasting Psychiatric: normal affect, normal behavior, A&O x 3 Hosp A/P (1) COVID-19 virus infection Code(s): U07.1 - COVID-19 Status: Acute Plan: I will continue current management plan. (2) Elevated troponin Code(s): R77.8 - OTHER SPECIFIED ABNORMALITIES OF PLASMA PROTEINS Status: Acute (3) Accelerated hypertension Code(s): I10 - ESSENTIAL (PRIMARY) HYPERTENSION Status: Acute - Plan old records reviewed/req, continue antibiotics, PT/OT, respiratory therapy, incentive spirometry
[2020-06-30] MEDS ORDERED: Azithromycin 250 MG TAB PO SCH (18:30)
[2020-06-30] MEDS: Cefdinir 300 MG CAP PO SCH (22:01)
[2020-06-30] MEDS: Rosuvastatin 5 MG TAB PO SCH (22:01)
[2020-07-01] MEDS: Acetaminophen 325 MG TAB PO PRN (00:47)
[2020-07-01] MEDS: hydrALAZINE 20 MG/ML VIAL SLOW IVP SCH ×2 (00:48→01:39)
[2020-07-01] MEDS: Aspirin 325 mg Enteric Coated Tablet PO SCH (08:50)
[2020-07-01] MEDS: Ascorbic Acid 500 mg Chewable Tablet PO SCH (08:50)
[2020-07-01] MEDS: Polyethylene Glycol 3350 17 GM Packet PO SCH (08:50)
[2020-07-01] MEDS: Apixaban 5 MG TAB PO SCH ×2 (08:50→19:51)
[2020-07-01] MEDS: Cefdinir 300 MG CAP PO SCH ×2 (08:51→19:51)
[2020-07-01] MEDS: Furosemide 20 MG TAB PO SCH (08:51)
[2020-07-01] MEDS: Famotidine 20 MG TAB PO SCH (08:51)
[2020-07-01] MEDS: hydrALAZINE 25 MG TAB PO SCH ×3 (08:51→19:51)
[2020-07-01] MEDS: Dexamethasone 4 MG TAB PO SCH (08:51)
[2020-07-01] MEDS: Carvedilol 6.25 MG TAB PO SCH ×2 (08:51→16:10)
[2020-07-01] MEDS: Lisinopril 10 MG TAB PO SCH ×2 (08:52→19:51)
[2020-07-01] MEDS: Azithromycin 250 MG TAB PO SCH (08:52)
[2020-07-01] MEDS: Zinc Sulfate 220 MG CAP PO SCH (08:52)
[2020-07-01] MEDS: Lorazepam 0.5 MG TAB PO PRN (10:47)
--- NOTE | 2020-07-01 16:17 | PDOC.HOSPP ---
- Subjective Encounter Date: 07/01/20 Encounter Time: 16:15 Subjective: Patient was seen and evaluated today. She reports no complaint. I am told by case management that she has been accepted for a swing bed on discharge. Plan will be to get her over there by tomorrow. - Objective Vital Signs & Weight: Vital Signs (12 hours) Pulse Resp BP BP BP Pulse Ox 07/01/20 12:00 71 22 H 149/65 H 95 07/01/20 09:30 157/65 H 159/64 H 07/01/20 08:00 20 96 Weight Weight 124 lb 8 oz I&O: 06/30/20 07/01/20 07/02/20 06:59 06:59 06:59 Intake Total 1520 470 Output Total 600 100 Balance 920 370 Result Diagrams: 06/30/20 04:51 06/30/20 04:51 Radiology Reviewed by me: Yes EKG Reviewed by me: Yes Hospitalist ROS - Review of Systems ROS unobtainable: due to mental status Respiratory: reports: cough, dry, SOB with excertion - Medication Medications: Active Medications Generic Name Dose Route Start Last Admin Trade Name Freq PRN Reason Stop Dose Admin Acetaminophen 650 mg 06/27/20 00:29 07/01/20 00:47 Acetaminophen 325 Mg Tab PO 650 mg Q4H PRN Administration Headache/Fever/Mild Pain (1-3) Apixaban 2.5 mg 06/27/20 09:00 07/01/20 08:50 Apixaban 5 Mg Tab PO 2.5 mg BID ANNE-MARIE Administration Ascorbic Acid 1,000 mg 06/28/20 09:00 07/01/20 08:50 Ascorbic Acid 500 Mg Chewable Tablet PO 1,000 mg DAILY ANNE-MARIE Administration Aspirin 325 mg 06/27/20 09:00 07/01/20 08:50 Aspirin 325 Mg Enteric Coated Tablet PO 325 mg DAILY ANNE-MARIE Administration Azithromycin 250 mg 07/01/20 09:00 07/01/20 08:52 Azithromycin 250 Mg Tab PO 250 mg DAILY ANNE-MARIE Administration Carvedilol 6.25 mg 06/29/20 17:00 07/01/20 16:10 Carvedilol 6.25 Mg Tab PO 6.25 mg BID-WM ANNE-MARIE Administration Cefdinir 300 mg 06/30/20 21:00 07/01/20 08:51 Cefdinir 300 Mg Cap PO 300 mg BID ANNE-MARIE Administration Dexamethasone 6 mg 07/01/20 08:00 07/01/20 08:51 Dexamethasone 4 Mg Tab PO 6 mg QAM-WM ANNE-MARIE Administration Famotidine 20 mg 07/01/20 09:00 07/01/20 08:51 Famotidine 20 Mg Tab PO 20 mg DAILY ANNE-MARIE Administration Furosemide 20 mg 06/28/20 09:00 07/01/20 08:51 Furosemide 20 Mg Tab PO 20 mg MWF ANNE-MARIE Administration Hydralazine HCl 25 mg 07/01/20 09:00 07/01/20 16:10 Hydralazine 25 Mg Tab PO 25 mg TID ANNE-MARIE Administration Lisinopril 10 mg 06/27/20 09:00 07/01/20 08:52 Lisinopril 10 Mg Tab PO 10 mg BID ANNE-MARIE Administration Lorazepam 0.5 mg 06/30/20 11:03 07/01/20 10:47 Lorazepam 0.5 Mg Tab PO 0.5 mg TIDPRN PRN Administration Anxiety Melatonin 3 mg 06/27/20 08:46 06/28/20 21:15 Melatonin 3 Mg Tab PO 3 mg HS PRN Administration Insomnia Ondansetron HCl 4 mg 06/29/20 12:55 06/29/20 20:12 Ondansetron Pf 4 Mg/2 Ml Vial IVP 4 mg Q6H PRN Administration Nausea/Vomiting Polyethylene Glycol 17 gm 06/30/20 09:00 07/01/20 08:50 Polyethylene Glycol 3350 17 Gm Packet PO 17 gm DAILY ANNE-MARIE Administration Rosuvastatin Calcium 5 mg 06/27/20 21:00 06/30/20 22:01 Rosuvastatin 5 Mg Tab PO 5 mg HS ANNE-MARIE Administration Zinc Sulfate 220 mg 06/28/20 09:00 07/01/20 08:52 Zinc Sulfate 220 Mg Cap PO 220 mg DAILY ANNE-MARIE Administration - Exam General Appearance: NAD, awake alert, ill appearing Eye: PERRL, anicteric sclera ENT: normocephalic atraumatic, no oropharyngeal lesions Neck: supple, symmetric, no JVD, no thyromegaly, no lymphadenopathy Heart: RRR, no murmur, no gallops, no rubs, normal peripheral pulses Respiratory: CTAB, no wheezes, no rales Gastrointestinal: soft, non-tender, non-distended, normal bowel sounds Psychiatric: normal affect, normal behavior, oriented to person, oriented to place Hosp A/P (1) COVID-19 virus infection Code(s): U07.1 - COVID-19 Status: Acute Plan: We will continue supportive care at this time. (2) Elevated troponin Code(s): R77.8 - OTHER SPECIFIED ABNORMALITIES OF PLASMA PROTEINS Status: Acute Plan: NSTEMI ruled out (3) Accelerated hypertension Code(s): I10 - ESSENTIAL (PRIMARY) HYPERTENSION Status: Acute - Plan old records reviewed/req, PT/OT
[2020-07-01] MEDS: Rosuvastatin 5 MG TAB PO SCH (19:51)
[2020-07-02] MEDS: Lorazepam 0.5 MG TAB PO PRN (05:07)
[2020-07-02] MEDS: Apixaban 5 MG TAB PO SCH (07:59)
[2020-07-02] MEDS: Famotidine 20 MG TAB PO SCH (07:59)
[2020-07-02] MEDS: Cefdinir 300 MG CAP PO SCH (08:01)
[2020-07-02] MEDS: Azithromycin 250 MG TAB PO SCH (08:01)
[2020-07-02] MEDS: Lisinopril 10 MG TAB PO SCH (08:01)
[2020-07-02] MEDS: Ascorbic Acid 500 mg Chewable Tablet PO SCH (08:01)
[2020-07-02] MEDS: Dexamethasone 4 MG TAB PO SCH (08:02)
[2020-07-02] MEDS: Zinc Sulfate 220 MG CAP PO SCH (08:02)
[2020-07-02] MEDS: Carvedilol 6.25 MG TAB PO SCH (08:03)
[2020-07-02] MEDS: Aspirin 325 mg Enteric Coated Tablet PO SCH (08:05)
[2020-07-02] MEDS: Polyethylene Glycol 3350 17 GM Packet PO SCH (08:05)
[2020-07-02] MEDS: hydrALAZINE 25 MG TAB PO SCH (08:05)
[2020-07-02 08:27] VITALS: BP 127/67; TEMP 97.3
--- NOTE | 2020-07-02 10:45 | PDOC.DS.DS ---
Provider - Provider Date of Admission: 06/27/20 00:23 Date of Discharge: 07/02/20 Admitting Provider: Kayla Tsai MD Primary Care Physician: MAX YUNG MD Course - Hospital Course Hospital Course: This is an 89-year-old woman who was brought into the hospital for worsening shortness of breath. She was hypoxic on arrival in the emergency room and required O2 via nasal cannula. Apparently her caregivers were recently hospitalized for COVID-19 pneumonia and her chest x-ray on admission showed evidence of bilateral groundglass opacities consistent with Covid. She was hospitalized for further treatment. She remained fairly stable during the course of her stay. She was on empiric IV antibiotic and other cultures were negative. Due to issues with ongoing debility the family elected for her to transfer to [facility] where she will continue physical therapy. I saw and evaluated her today and she seems clinically stable and we will aparicio sfer her to [facility] facility. Resuscitation Status: 06/27/20 00:29 Resuscitation Status Routine Resuscitation Status: FULL: Full Resuscitation - Labs Lab Results: 06/30/20 04:51 06/30/20 04:51 - Physical Exam Vitals: Vital Signs (12 hours) Temp Pulse Resp BP Pulse Ox 07/02/20 08:05 63 07/02/20 08:00 97.3 F L 60 32 H 127/67 97 07/02/20 07:45 98 07/02/20 06:15 166/93 H 07/02/20 03:59 97.5 F L 63 16 176/85 H 98 07/01/20 23:57 97.7 F 63 20 180/107 H 100 Weight Weight 124 lb 8 oz Physical Exam: The patient was seen and examined on the day of discharge. Problem - Problem (1) COVID-19 virus infection Code(s): U07.1 - COVID-19 Status: Acute (2) Elevated troponin Code(s): R77.8 - OTHER SPECIFIED ABNORMALITIES OF PLASMA PROTEINS Status: Acute (3) Accelerated hypertension Code(s): I10 - ESSENTIAL (PRIMARY) HYPERTENSION Status: Acute - Time spent with Patient (mins): 30 Plan - Discharge Medications Prescriptions: hydrALAZINE [Apresoline] 25 mg PO TID #90 tab Carvedilol [Coreg] 6.25 mg PO BID-WM #60 tab Dexamethasone [Decadron] 6 mg PO QAM-WM #5 tab Zinc Sulfate 220 mg PO DAILY #30 cap Azithromycin [Zithromax] 250 mg PO DAILY #5 tab Home Medications: Medication Instructions Recorded Confirmed Type Apixaban [Eliquis] 2.5 mg PO BID #60 tab 06/10/18 06/27/20 Rx Omeprazole 20 mg PO BID 06/27/20 06/27/20 History Azithromycin [Zithromax] 250 mg PO DAILY #5 tab 07/01/20 Rx Carvedilol [Coreg] 6.25 mg PO BID-WM #60 tab 07/01/20 Rx Dexamethasone [Decadron] 6 mg PO QAM-WM #5 tab 07/01/20 Rx Rosuvastatin [Crestor] 5 mg PO HS tab 07/01/20 Rx Zinc Sulfate 220 mg PO DAILY #30 cap 07/01/20 Rx hydrALAZINE [Apresoline] 25 mg PO TID #90 tab 07/01/20 Rx Allergies: latex Allergy (Severe, Verified 06/27/20 02:43) Rash Per pt levofloxacin [From Levaquin] Allergy (Severe, Verified 06/27/20 02:43) Rash Per pt Penicillins Allergy (Severe, Verified 06/27/20 02:43) Rash Per pt phenazopyridine Allergy (Intermediate, Verified 06/27/20 02:43) Headache other symptoms include stomach upset with nausea , dizziness; Per pt Sulfa (Sulfonamide Antibiotics) Allergy (Intermediate, Verified 06/27/20 02:43) Nausea Per pt - Discharge Instructions Discharge Instructions:: Your new prescriptions were sent electronically to the [facility] in [place], [place] when needed. Please arrange to pick-up upon discharge from [facility]. Activity:: Activity as Tolerated Therapies:: Occupational Therapy, Physical Therapy Equipment/Supplies:: Wheelchair IV Therapy:: Not Applicable - Follow up Plan Referrals: MAX YUNG [Primary Care Provider] - 7 Days Disposition: [facility] Quality - Care Measures CORE MEASURES:: N/A
== END 2020-07-02 11:18 | DRG 177 ==
LOC: ERS 22:53 → 2SW 06-27 00:23
PROVIDERS: ADMIT Internal Medicine; ATTEND Hospitalist
PROC: 8E0ZXY6 Isolation (ICD-10-PCS; principal; 2020-06-27)
DX: U07.1 COVID-19 (principal); J12.89 Other viral pneumonia; J44.1 Chronic obstructive pulmonary disease with (acute) exacerbation; J44.0 Chronic obstructive pulmonary disease with (acute) lower respiratory infection; N39.0 Urinary tract infection, site not specified; I24.8 Other forms of acute ischemic heart disease; I48.20 Chronic atrial fibrillation, unspecified; I25.10 Atherosclerotic heart disease of native coronary artery without angina pectoris; E78.5 Hyperlipidemia, unspecified; F03.90 Unspecified dementia, unspecified severity, without behavioral disturbance, psychotic disturbance, mood disturbance, and anxiety; R77.8 Other specified abnormalities of plasma proteins; I10 Essential (primary) hypertension; Z85.3 Personal history of malignant neoplasm of breast; Z88.0 Allergy status to penicillin; Z95.0 Presence of cardiac pacemaker; Z88.2 Allergy status to sulfonamides; Z88.9 Allergy status to unspecified drugs, medicaments and biological substances; Z91.040 Latex allergy status; Z98.84 Bariatric surgery status; Z88.1 Allergy status to other antibiotic agents; Z79.01 Long term (current) use of anticoagulants; Z79.899 Other long term (current) drug therapy; Z79.2 Long term (current) use of antibiotics; Z88.8 Allergy status to other drugs, medicaments and biological substances
CPT/HCPCS: 36415; 36416; 80048; 84484; 85025; 96374; J0360; J0456; J0696; J1100; J2405; J2550; J2930; J3490; J7050; J8540; Q0169; S0028; U0002